=== PATIENT | male | born 1955 | race Caucasian/White ===

== ENCOUNTER 2019-04-16 15:44 | Emergency (ER) | payer BC ==
[~2019-04-16] VITALS: Ht 175.3 cm; Wt 99.8 kg
--- OUTSIDE RECORDS SUMMARY | ~2019-04-16 | XMS | Encounter Summary ---
Demographics + + + | Address | [address] | | | [address] | | | [place] [address] | + + + | Home Phone | | + + + | Preferred Language | Unknown | + + + | Marital Status | | + + + | Hindu Affiliation | 1013 | + + + | Race | Unknown | + + + | Ethnic Group | Unknown | + + + Author + + + | Author | [facility] | | | and [place] | + + + | Organization | [facility] | | | and [place] | + + + | Address | Unknown | + + + | Phone | Unavailable | + + + Support + + +---------+ + | Name | Relationship | Address | Phone | + + +---------+ + | Trena Robertson | ECON | Unknown | | + + +---------+ + Care Team Providers + +------+ + | Care Electric Wirer Name | Role | Phone | + +------+ + PCP | Unavailable | + +------+ + Encounter Details +--------+ + + + + | Date | Type | Department | Care Team | Description | +--------+ + + + + | 12/25/ | Hospital | [facility] | Judah Galeano | Cough | | 2006 | Encounter | [facility] [address] | MD [address] | | | | | [address] | [address] | | | | | [place] | [place] | | | | | [address] | [address] | | | | | [phone] | [phone] | | | | | | | | +--------+ + + + + Social History + +-------+ +--------+------+ | Tobacco Use | Types | Packs/Day | Years | Date | | | | | Used | | + +-------+ +--------+------+ | Never Assessed | | | | | + +-------+ +--------+------+ + + + | Sex Assigned at | Date Recorded | | | | + + + | Not on file | | + + + + + + + | Job Start Date | Occupation | Industry | + + + + | Not on file | Not on file | Not on file | + + + + + + + + | Travel History | Travel Start | Travel End | + + + + + + | No recent travel history available. | + + documented as of this encounter Plan of Treatment Not on filedocumented as of this encounter Visit Diagnoses + + | Diagnosis | + + | Cough | + + documented in this encounter"
--- OUTSIDE RECORDS SUMMARY | ~2019-04-16 | XMS | Encounter Summary ---
Demographics + + + | Address | [address] | | | [address] | | | [place] [address] | + + + | Home Phone | | + + + | Preferred Language | Unknown | + + + | Marital Status | | + + + | Denominational Affiliation | 1013 | + + + | Race | Unknown | + + + | Ethnic Group | Unknown | + + + Author + + + | Author | [facility] | | | and [place] | + + + | Organization | [facility] | | | [...] Team Providers + +------+ + | Care Cut Out Worker Name | Role | Phone | + +------+ + | Bennie Lewis MD | PCP | | + +------+ + Reason for Visit + + + | Reason | Comments | + + + | New Patient | | + + + | Colon Cancer | | | Screening | | + + + Evaluate & Treat (Routine) +--------+--------+ + + + + | Status | Reason | Specialty | Diagnoses / | Referred By | Referred To | | | | | Procedures | Contact | Contact | +--------+--------+ + + + + | Closed | | Gastroenterol | Diagnoses | Debbie, | [facility] | | | | ogy | Encounter | Bennie | Gastroenterol | | | | | for | MD Ihsan | ogy [address] | | | | | screening | [address] | | | | | for | [place] | [address] [place] | | | | | malignant | [address] [place] | [place] | | | | | neoplasm of | [place] | [address] | | | | | colon | [address] | Phone: | | | | | Procedures | Phone: | [phone] | | | | | COMMUNITY DEVELOPMENT DIRECTOR | [phone] | Fax: | | | | | COLONOSCOPY | Fax: | [phone] | | | | | | [phone] | | +--------+--------+ + + + + Encounter Details +--------+---------+ + + + | Date | Type | Department | Care Team | Description | +--------+---------+ + + + | 01/29/ | Office | [facility] | Matias Croft MD | Hx of colonic polyp | | 2019 | Visit | GASTROENTEROLOGY | [address], [place] | (Primary Dx); Long | | | | [address] | [address] [place] | term (current) use | | | | [address] [place], [place] | [address] | of anticoagulants; | | | | [address] | | Coronary artery | | | | [phone] | | disease, angina | | | | | | presence | | | | | | unspecified, | | | | | | unspecified vessel | | | | | | or lesion type, | | | | | | unspecified whether | | | | | | creek or | | | | | | transplanted heart | +--------+---------+ + + + Social History + +-------+ +--------+------+ | Tobacco Use | Types | Packs/Day | Years | Date | | | | | Used | | + +-------+ +--------+------+ | Never Smoker | | | | | + +-------+ +--------+------+ + +---+---+---+ | Smokeless Tobacco: | | | | | Never Used | | | | + +---+---+---+ + + +---------+ + | Alcohol Use | Drinks/Week | oz/Week | Comments | + + +---------+ + | Yes | | | Very rarely | + + +---------+ + + + + | Sex Assigned at [...] + + documented as of this encounter Last Filed Vital Signs + + + + + | Vital Sign | Reading | Time Taken | Comments | + + + + + | Blood Pressure | 160/60 | 01/29/2019 3:17 PM | | | | | PDT | | + + + + + | Pulse | 67 | 01/29/2019 3:17 PM | | | | | PDT | | + + + + + | Temperature | - | - | | + + + + + | Respiratory Rate | 16 | 01/29/2019 3:17 PM | | | | | PDT | | + + + + + | Oxygen Saturation | - | - | | + + + + + | Inhaled Oxygen | - | - | | | Concentration | | | | + + + + + | Weight | 98.9 kg (218 lb 0.6 | 01/29/2019 3:17 PM | | | | oz) | PDT | | + + + + + | Height | 175.3 cm (5' 9") | 01/29/2019 3:17 PM | | | | | PDT | | + + + + + | Body Mass Index | 32.2 | 01/29/2019 3:17 PM | | | | | PDT | | + + + + + documented in this encounter Plan of Treatment Not on filedocumented as of this encounter Visit Diagnoses + + | Diagnosis | + + | Hx of colonic polyp - Primary Personal history of colonic polyps | + + | 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
--- OUTSIDE RECORDS SUMMARY | ~2019-04-16 | XMS | Encounter Summary ---
Demographics + + + | Address | [address] | | | [address] | | | [place] [address] | + + + | Home Phone | | + + + | Preferred Language | Unknown | + + + | Marital Status | | + + + | Orthodoxy Affiliation | 1013 | + + + | Race | Unknown | + + + | Ethnic Group | Unknown | + + + Author + + + | Author | [facility] | | | and [place] | + + + | Organization | [facility] | | | and [...] Team Providers + +------+ + | Care Multi Operation Machine Operator Name | Role | Phone | + +------+ + PCP | Unavailable | + +------+ + Encounter Details +--------+ + + + + | Date | Type | Department | Care Team | Description | +--------+ + + + + | 04/24/ | Hospital | [facility] | Ayo Navas E, | | | 2006 | Encounter | MED CTR MP INTRA OP | [address] [facility] | | | | | [address] | [place] | | | | | [place] | [address] | | | | | [address] | | | | | | [phone] | | | +--------+ + + + [...] filedocumented as of this encounter Visit Diagnoses Not on filedocumented in this encounter"
--- OUTSIDE RECORDS SUMMARY | ~2019-04-16 | XMS | Encounter Summary ---
Demographics + + + | Address | [address] | | | [address] | | | [place] [address] | + + + | Home Phone | | + + + | Preferred Language | Unknown | + + + | Marital Status | | + + + | Quaker Affiliation | 1013 | + + + | Race | Unknown | + + + | Ethnic Group | Unknown | + + + Author + + + | Author | [facility] | | | and [place] | + + + | Organization | [facility] | | | and [...] Team Providers + +------+ + | Care Administrative Analyst Name | Role | Phone | + +------+ + PCP | Unavailable | + +------+ + Encounter Details +--------+ + + + + | Date | Type | Department | Care Team | Description | +--------+ + + + + | 08/11/ | Hospital | [facility] | Price Gallagher, | | | 2008 - | Encounter | MED CTR [address] | [address] | | | | | [place], | [place], | | | 08/12/ | | [place] [address] | [place] [address] | | | 2008 | | [phone] | [phone] | | | | | | | [...]
--- OUTSIDE RECORDS SUMMARY | ~2019-04-16 | XMS | Encounter Summary ---
Demographics + + + | Address | [address] | | | [address] | | | [place] [address] | + + + | Home Phone | | + + + | Preferred Language | Unknown | + + + | Marital Status | | + + + | Catholic Affiliation | 1013 | + + + | Race | Unknown | + + + | Ethnic Group | Unknown | + + + Author + + + | Author | [facility] | | | and [place] | + + + | Organization | [facility] | | | [...] Team Providers + +------+ + | Care Roofer Assistant Name | Role | Phone | + +------+ + PCP | Unavailable | + +------+ + Encounter Details +--------+ + + + + | Date | Type | Department | Care Team | Description | +--------+ + + + + | 11/27/ | Hospital | [facility] | Chuy Mei | | | 2006 | Encounter | [facility] | [address] [facility] | | | | | CLINICAL DECISION | [address] | | | | | [address] [facility] | [id number] | | | | | [place], [place] | | | | | | [address] | | | | | | [phone] | | | +--------+ + + + [...]
--- OUTSIDE RECORDS SUMMARY | ~2019-04-16 | XMS | Encounter Summary ---
Demographics + + + | Address | [address] | | | [address] | | | [place] [address] | + + + | Home Phone | | + + + | Preferred Language | Unknown | + + + | Marital Status | | + + + | Muslim Affiliation | 1013 | + + + | Race | Unknown | + + + | Ethnic Group | Unknown | + + + Author + + + | Author | [facility] | | | and [place] | + + + | Organization | [facility] | | [...] Team Providers + +------+ + | Care Dry Starch Supervisor Name | Role | Phone | + +------+ + PCP | Unavailable | + +------+ + Encounter Details +--------+ + + + + | Date | Type | Department | Care Team | Description | +--------+ + + + + | 08/11/ | Hospital | [facility] | | | | 2008 | Encounter | MED CTR XRAY [address] | | | | | | [place] | | | | | | [place] [address] | | | | | | [phone] | | | +--------+ + + + [...]
--- OUTSIDE RECORDS SUMMARY | ~2019-04-16 | XMS | Encounter Summary ---
Demographics + + + | Address | [address] | | | [address] | | | [place] [address] | + + + | Home Phone | | + + + | Preferred Language | Unknown | + + + | Marital Status | | + + + | Bahai Affiliation | 1013 | + + + | Race | Unknown | + + + | Ethnic Group | Unknown | + + + Author + + + | Author | [facility] | | | and [place] | + + + | Organization | [facility] | | | [...] Team Providers + +------+ + | Care Computer Mechanic Name | Role | Phone | + +------+ + | Bennie Lewis MD | PCP | | + +------+ + Encounter Details +--------+ + + + + | Date | Type | Department | Care Team | Description | +--------+ + + + + | 01/07/ | Abstract | [facility] | Provider, | | | 2018 | | GASTROENTEROLOGY | MD [address] | | | | | [address] | [place] | | | | | [address] | [place] [address] | | | | | [address] | | | | | | [phone] | | | +--------+ + + + [...] Not on filedocumented as of this encounter Procedures + +--------+ + + + | Procedure Name | Priori | Date/Time | Associated Diagnosis | Comments | | | ty | | | | + +--------+ + + + | CBC WITH | Routin | 01/07/2019 | | Results for this | | DIFFERENTIAL | e | | | procedure are in the | | | | | | results section. | + +--------+ + + + | EXTERNAL LAB: [facility] | Routin | 12/11/2018 | | Results for this | | | e | | | procedure are in the | | | | | | results section. | + +--------+ + + + | EXTERNAL LAB: | Routin | 12/11/2018 | | Results for this | | GLUCOSE | e | | | procedure are in the | | | | | | results section. | + +--------+ + + + | EXTERNAL LAB: | Routin | 12/11/2018 | | Results for this | | PHOSPHORUS | e | | | procedure are in the | | | | | | results section. | + +--------+ + + + | EXTERNAL LAB: | Routin | 12/11/2018 | | Results for this | | MAGNESIUM | e | | | procedure are in the | | | | | | results section. | + +--------+ + + + | EXTERNAL LAB: | Routin | 12/11/2018 | | Results for this | | CALCIUM | e | | | procedure are in the | | | | | | results section. | + +--------+ + + + | EXTERNAL LAB: [facility] | Routin | 12/11/2018 | | Results for this | | DIOXIDE | e | | | procedure are in the | | | | | | results section. | + +--------+ + + + | EXTERNAL LAB: | Routin | 12/11/2018 | | Results for this | | CHLORIDE | e | | | procedure are in the | | | | | | results section. | + +--------+ + + + | EXTERNAL LAB: | Routin | 12/11/2018 | | Results for this | | POTASSIUM | e | | | procedure are in the | | | | | | results section. | + +--------+ + + + | EXTERNAL LAB: SODIUM | Routin | 12/11/2018 | | Results for this | | | e | | | procedure are in the | | | | | | results section. | + +--------+ + + + | EXTERNAL LAB: CBC | Routin | 12/11/2018 | | Results for this | | | e | | | procedure are in the | | | | | | results section. | + +--------+ + + + | EXTERNAL LAB: | Routin | 12/11/2018 | | Results for this | | TRIGLYCERIDES | e | | | procedure are in the | | | | | | results section. | + +--------+ + + + | EXTERNAL LAB: | Routin | 12/11/2018 | | Results for this | | CHOLESTEROL, HDL | e | | | procedure are in the | | | | | | results section. | + +--------+ + + + | EXTERNAL LAB: | Routin | 12/11/2018 | | Results for this | | CHOLESTEROL, TOTAL | e | | | procedure are in the | | | | | | results section. | + +--------+ + + + | EXTERNAL LAB: | Routin | 12/11/2018 | | Results for this | | CHOLESTEROL, LDL | e | | | procedure are in the | | | | | | results section. | + +--------+ + + + | EXTERNAL LAB: EGFR | Routin | 12/11/2018 | | Results for this | | | e | | | procedure are in the | | | | | | results section. | + +--------+ + + + | EXTERNAL LAB: | Routin | 12/11/2018 | | Results for this | | CREATININE | e | | | procedure are in the | | | | | | results section. | + +--------+ + + + | LIPID PANEL | Routin | 12/11/2018 | | Results for this | | | e | | | procedure are in the | | | | | | results section. | + +--------+ + + + | CBC WITH | Routin | 12/11/2018 | | Results for this | | DIFFERENTIAL | e | | | procedure are in the | | | | | | results section. | + +--------+ + + + | HEMOGLOBIN A1C | Routin | 12/11/2018 | | Results for this | | | e | | | procedure are in the | | | | | | results section. | + +--------+ + + + documented in this encounter Results CBC with Differential (01/07/2019) + + | Specimen | + + | Blood | + + + + + | Narrative | Performed At | + + + | Opened in error | | + + + Lipid Panel (12/11/2018) + +---------+ + + + | Component | Value | Ref Range | Performed | Pathologist | | | | | At | Signature | + +---------+ + + + | Chol/HDL | 2.5 (A) | 3.7 - 6.7 Ratio | | | | Ratio | | | | | + +---------+ + + + | Non HDL | 103 | 0 - 130 mg/dl | | | | Chol. | | | | | | (LDL+VLDL) | | | | | + +---------+ + + + + + | Specimen | + + | Blood | + + External Lab: BUN (12/11/2018) + +-------+ + + + | Component | Value | Ref Range | Performed | Pathologist | | | | | At | Signature | + +-------+ + + + | BUN, | 14 | 7 - 23 | EXTERNAL | | | External | | | LAB | | + +-------+ + + + + +---------+ + + | Performing | Address | City/State/Zipcode | Phone Number | | Organization | | | | + +---------+ + + | EXTERNAL LAB | | | | + +---------+ + + External Lab: Glucose (12/11/2018) + +-------+ + + + | Component | Value | Ref Range | Performed | Pathologist | | | | | At | Signature | + +-------+ + + + | Glucose, | 89 | 71 - 109 | EXTERNAL | | | External | | | LAB | | + +-------+ + + + + +---------+ + + | Performing | Address | City/State/Zipcode | Phone Number | | Organization | | | | + +---------+ + + | EXTERNAL LAB | | | | + +---------+ + + External Lab: Phosphorus (12/11/2018) + +-------+ + + + | Component | Value | Ref Range | Performed | Pathologist | | | | | At | Signature | + +-------+ + + + | Phosphorus, | 3.9 | 2.5 - 4.7 | EXTERNAL | | | External | | | LAB | | + +-------+ + + + + +---------+ + + | Performing | Address | City/State/Zipcode | Phone Number | | Organization | | | | + +---------+ + + | EXTERNAL LAB | | | | + +---------+ + + External Lab: Magnesium (12/11/2018) + +-------+ + + + | Component | Value | Ref Range | Performed | Pathologist | | | | | At | Signature | + +-------+ + + + | Magnesium, | 2.3 | 2 - 2.6 | EXTERNAL | | | External | | | LAB | | + +-------+ + + + + +---------+ + + | Performing | Address | City/State/Zipcode | Phone Number | | Organization | | | | + +---------+ + + | EXTERNAL LAB | | | | + +---------+ + + External Lab: Calcium (12/11/2018) + +-------+ + + + | Component | Value | Ref Range | Performed | Pathologist | | | | | At | Signature | + +-------+ + + + | Calcium, | 9.7 | 8.4 - 10.5 | EXTERNAL | | | External | | | LAB | | + +-------+ + + + + +---------+ + + | Performing | Address | City/State/Zipcode | Phone Number | | Organization | | | | + +---------+ + + | EXTERNAL LAB | | | | + +---------+ + + External Lab: Carbon Dioxide (12/11/2018) + +-------+ + + + | Component | Value | Ref Range | Performed | Pathologist | | | | | At | Signature | + +-------+ + + + | Carbon | 26 | 21 - 32 | EXTERNAL | | | Dioxide, | | | LAB | | | External | | | | | + +-------+ + + + + +---------+ + + | Performing | Address | City/State/Zipcode | Phone Number | | Organization | | | | + +---------+ + + | EXTERNAL LAB | | | | + +---------+ + + External Lab: Chloride (12/11/2018) + +-------+ + + + | Component | Value | Ref Range | Performed | Pathologist | | | | | At | Signature | + +-------+ + + + | Chloride, | 100 | 98 - 107 | EXTERNAL | | | External | | | LAB | | + +-------+ + + + + +---------+ + + | Performing | Address | City/State/Zipcode | Phone Number | | Organization | | | | + +---------+ + + | EXTERNAL LAB | | | | + +---------+ + + External Lab: Potassium (12/11/2018) + +-------+ + + + | Component | Value | Ref Range | Performed | Pathologist | | | | | At | Signature | + +-------+ + + + | Potassium, | 4.9 | 3.5 - 5.1 | EXTERNAL | | | External | | | LAB | | + +-------+ + + + + +---------+ + + | Performing | Address | City/State/Zipcode | Phone Number | | Organization | | | | + +---------+ + + | EXTERNAL LAB | | | | + +---------+ + + External Lab: Sodium (12/11/2018) + +-------+ + + + | Component | Value | Ref Range | Performed | Pathologist | | | | | At | Signature | + +-------+ + + + | Sodium, | 137 | 133 - 145 | EXTERNAL | | | External | | | LAB | | + +-------+ + + + + +---------+ + + | Performing | Address | City/State/Zipcode | Phone Number | | Organization | | | | + +---------+ + + | EXTERNAL LAB | | | | + +---------+ + + External Lab: Triglycerides (12/11/2018) + +-------+ + + + | Component | Value | Ref Range | Performed | Pathologist | | | | | At | Signature | + +-------+ + + + | Triglycerid | 111 | 51 - 152 | EXTERNAL | | | es, | | | LAB | | | External | | | | | + +-------+ + + + + + | Specimen | + + | Blood | + + + +---------+ + + | Performing | Address | City/State/Zipcode | Phone Number | | Organization | | | | + +---------+ + + | EXTERNAL LAB | | | | + +---------+ + + External Lab: Cholesterol, HDL (12/11/2018) + +-------+ + + + | Component | Value | Ref Range | Performed | Pathologist | | | | | At | Signature | + +-------+ + + + | HDL | 67 | 35 - 80 mg/dl | EXTERNAL | | | Cholesterol | | | LAB | | | , External | | | | | + +-------+ + + + + + | Specimen | + + | Blood | + + + +---------+ + + | Performing | Address | City/State/Zipcode | Phone Number | | Organization | | | | + +---------+ + + | EXTERNAL LAB | | | | + +---------+ + + External Lab: Cholesterol, Total (12/11/2018) + +-------+ + + + | Component | Value | Ref Range | Performed | Pathologist | | | | | At | Signature | + +-------+ + + + | Cholesterol | 170 | 50 - 200 mg/dl | EXTERNAL | | | , Total, | | | LAB | | | External | | | | | + +-------+ + + + + + | Specimen | + + | Blood | + + + +---------+ + + | Performing | Address | City/State/Zipcode | Phone Number | | Organization | | | | + +---------+ + + | EXTERNAL LAB | | | | + +---------+ + + External Lab: Cholesterol, LDL (12/11/2018) + +-------+ + + + | Component | Value | Ref Range | Performed | Pathologist | | | | | At | Signature | + +-------+ + + + | LDL | 81 | 0 - 130 | EXTERNAL | | | Cholesterol | | | LAB | | | , Direct, | | | | | | External | | | | | + +-------+ + + + + + | Specimen | + + | Blood | + + + +---------+ + + | Performing | Address | City/State/Zipcode | Phone Number | | Organization | | | | + +---------+ + + | EXTERNAL LAB | | | | + +---------+ + + External Lab: eGFR (12/11/2018) + +-------+ + + + | Component | Value | Ref Range | Performed | Pathologist | | | | | At | Signature | + +-------+ + + + | eGFR, | >60 | 60 - 99,999 | EXTERNAL | | | External | | | LAB | | + +-------+ + + + + + | Specimen | + + | Blood | + + + +---------+ + + | Performing | Address | City/State/Zipcode | Phone Number | | Organization | | | | + +---------+ + + | EXTERNAL LAB | | | | + +---------+ + + External Lab: Creatinine (12/11/2018) + +-------+ + + + | Component | Value | Ref Range | Performed | Pathologist | | | | | At | Signature | + +-------+ + + + | Creatinine, | 1.1 | 0.8 - 1.5 | EXTERNAL | | | External | | | LAB | | + +-------+ + + + + + | Specimen | + + | Blood | + + + +---------+ + + | Performing | Address | City/State/Zipcode | Phone Number | | Organization | | | | + +---------+ + + | EXTERNAL LAB | | | | + +---------+ + + CBC with Differential (12/11/2018) + + + + + + | Component | Value | Ref Range | Performed | Pathologist | | | | | At | Signature | + + + + + + | MCH | 29.6 | 27.0 - 31.0 pg | | | + + + + + + | MCHC | 31.6 (A) | 32.0 - 36.0 | | | | | | g/dL | | | + + + + + + | % Basophils | 0.5 | 0.0 - 2.0 % | | | + + + + + + | % Immature | 0.2 | 0.0 - 0.9 % | | | | Granulocyte | | | | | | s | | | | | + + + + + + | Absolute | 0.01 | 0.00 - 0.07 | | | | Immature | | K/uL | | | | Granulocyte | | | | | | s | | | | | + + + + + + + + | Specimen | + + | Blood | + + Hemoglobin A1C (12/11/2018) + +---------+ + + + | Component | Value | Ref Range | Performed | Pathologist | | | | | At | Signature | + +---------+ + + + | Hemoglobin | 6.1 (A) | 0.0 - 5.6 % | EXTERNAL | | | A1c | | | LAB | | + +---------+ + + + + + | Specimen | + + | Blood | + + + +---------+ + + | Performing | Address | City/State/Zipcode | Phone Number | | Organization | | | | + +---------+ + + | EXTERNAL LAB | | | | + +---------+ + + External Lab: CBC (12/11/2018) + +-------+ + + + | Component | Value | Ref Range | Performed | Pathologist | | | | | At | Signature | + +-------+ + + + | WBC, | 5.9 | 3 - 10.6 | EXTERNAL | | | External | | | LAB | | + +-------+ + + + | HGB, | 13.3 | 11.8 - 17.1 | EXTERNAL | | | External | | | LAB | | + +-------+ + + + | HCT, | 42.1 | 36 - 51 | EXTERNAL | | | External | | | LAB | | + +-------+ + + + | PLT, | 277 | 150 - 400 | EXTERNAL | | | External | | | LAB | | + +-------+ + + + | Neutrophils | 52.5 | 44 - 74 | EXTERNAL | | | %, | | | LAB | | | External | | | | | + +-------+ + + + | Lymphocytes | 35.0 | 15 - 42 | EXTERNAL | | | %, | | | LAB | | | External | | | | | + +-------+ + + + | Monocytes | 9.1 | 4 - 13 | EXTERNAL | | | %, External | | | LAB | | + +-------+ + + + | Eosinophils | 2.7 | 0 - 7 | EXTERNAL | | | %, | | | LAB | | | External | | | | | + +-------+ + + + | Neutrophils | 3.1 | 1.2 - 7 | EXTERNAL | | | , Absolute, | | | LAB | | | External | | | | | + +-------+ + + + | Lymphocytes | 2.1 | 0.6 - 3.4 | EXTERNAL | | | , Absolute, | | | LAB | | | External | | | | | + +-------+ + + + | Monocytes, | 0.5 | 0.2 - 1 | EXTERNAL | | | Absolute, | | | LAB | | | External | | | | | + +-------+ + + + | Eosinophils | 0.2 | 0 - 0.5 | EXTERNAL | | | , Absolute | | | LAB | | + +-------+ + + + | Basophils, | 0.0 | 0 - 0.2 | EXTERNAL | | | Absolute | | | LAB | | + +-------+ + + + | RBC, | 4.49 | 3.86 - 5.7 | EXTERNAL | | | External | | | LAB | | + +-------+ + + + | MCV, | 94 | 81 - 102 | EXTERNAL | | | External | | | LAB | | + +-------+ + + + | RDW, | 12.6 | 11.2 - 16.2 | EXTERNAL | | | External | | | LAB | | + +-------+ + + + + +---------+ + + | Performing | Address | City/State/Zipcode | Phone Number | | Organization | | | | + +---------+ + + | EXTERNAL LAB | | | | + +---------+ + + documented in this encounter Visit Diagnoses Not on filedocumented in this encounter"
--- OUTSIDE RECORDS SUMMARY | ~2019-04-16 | XMS | Encounter Summary ---
Demographics + + + | Address | [address] | | | [address] | | | [place] [address] | + + + | Home Phone | | + + + | Preferred Language | Unknown | + + + | Marital Status | | + + + | Worship Affiliation | 1013 | + + + | Race | Unknown | + + + | Ethnic Group | Unknown | + + + Author + + + | Author | [facility] | | | and [place] | + + + | Organization | [facility] | | [...] Team Providers + +------+ + | Care Nursing Techn Name | Role | Phone | + +------+ + PCP | Unavailable | + +------+ + Encounter Details +--------+ + + + + | Date | Type | Department | Care Team | Description | +--------+ + + + + | 01/02/ | Abstract | [facility] | DATA MIGRATION [facility]IM[facility] | | | 2011 | | Conversion Location | [facility] | | | | | [phone] | | | +--------+ + + + [...] + + + | Blood Pressure | 126/82 | 10/11/2009 12:00 AM | | | | | PDT | | + + + + + | Pulse | - | - | | + + + + + | Temperature | - | - | | + + + + + | Respiratory Rate | - | - | | + + + + + | Oxygen Saturation | - | - | | + + + + + | Inhaled Oxygen | - | - | | | Concentration | | | | + + + + + | Weight | 90.7 kg (200 lb) | 01/12/2010 12:00 AM | | | | | PDT | | + + + + + | Height | 175.3 cm (5' 9") | 08/30/2009 12:00 AM | | | | | PDT | | + + + + + | Body Mass Index | 29.53 | 08/30/2009 12:00 AM | | | | | PDT | | + + + + + documented in this encounter Plan of Treatment Not on filedocumented as of this encounter Visit Diagnoses Not on filedocumented in this encounter
--- OUTSIDE RECORDS SUMMARY | ~2019-04-16 | XMS | Clinical Summary ---
Demographics + + + | Address | [address] | | | [place] [address] | + + + | Home Phone | | + + + | Preferred Language | Unknown | + + + | Marital Status | | + + + | Spiritism Affiliation | 1013 | + + + | Race | Unknown | + + + | Ethnic Group | Unknown | + + + Author + + + | Author | [facility] (Historical as of | | | 12-07-18) | + + + | Organization | [facility] (Historical as of | | | 12-07-18) | + + + | Address | Unknown | + + + | Phone | Unavailable | + + + Support + + + + + | Name | Relationship | Address | Phone | + + + + + | Isael Robertson | ECON | [address] | | | | | [place], [place] | | | | | [address] | | + + + + + Care Team Providers + +------+ + | Care Reel Stripper Name | Role | Phone | + +------+ + | Kian Murillo MD | PP | | + +------+ + Allergies Not on File Current Medications Not on file Active Problems Not on file Social History + +-------+ +--------+------+ | Tobacco [...] on file | | + + + Plan of Treatment Not on file Results Not on filefrom Last 3 Months"
--- OUTSIDE RECORDS SUMMARY | ~2019-04-16 | XMS | Encounter Summary ---
Demographics + + + | Address | [address] | | | [address] | | | [place] [address] | + + + | Home Phone | | + + + | Preferred Language | Unknown | + + + | Marital Status | | + + + | Congregation Affiliation | 1013 | + + + | Race | Unknown | + + + | Ethnic Group | Unknown | + + + Author + + + | Author | [facility] | | | and [place] | + + + | Organization | [facility] | | | and [...] Team Providers + +------+ + | Care Knockup Worker Name | Role | Phone | + +------+ + PCP | Unavailable | + +------+ + Encounter Details +--------+ + + + + | Date | Type | Department | Care Team | Description | +--------+ + + + + | 10/21/ | Hospital | [facility] | Merline Soto | OTHER PULMONARY | | 2009 - | Encounter | [facility] | MD Hodan [address] | EMBOLISM AND | | | | CARE FLOOR [phone] [place], [place] | INFARCTION (HCC) | | 10/30/ | | [address] | [address] | | | 2009 | | [place], [place] | | | | | | [address] | Ninfa Garcia MD | | | | | [phone] | [address] | | | | | | [place] [address] | | +--------+ + + + + [...] + + documented as of this encounter Medications at Time of Discharge + + + +---------+ + + | Medication | Sig | Dispensed | Refills | Start | End Date | | | | | | Date | | + + + +---------+ + + | aspirin (ADULT | Take 81 mg by mouth | | 0 | 08/31/19 | | | ASPIRIN EC LOW | Daily. | | | 10 | | | STRENGTH) 81 MG EC | | | | | | | tablet | | | | | | + + + +---------+ + + | lisinopril | Take 20 mg by mouth | | 0 | 08/31/19 | | | (PRINIVIL, ZESTRIL) | 2 times daily. | | | 10 | | | 20 mg tablet | | | | | | + + + +---------+ + + | metoprolol | 0.5 tablet twice | | 0 | 08/31/19 | | | (LOPRESSOR) 100 MG | daily | | | 10 | | | tablet | | | | | | + + + +---------+ + + | sertraline | Take 50 mg by mouth | | 0 | 08/31/19 | | | (ZOLOFT) 50 mg | 2 times daily. | | | 10 | | | tablet | | | | | | + + + +---------+ + + | simvastatin | Take 80 mg by mouth | | 0 | 08/31/19 | | | (ZOCOR) 80 mg tablet | 2 times daily. | | | 10 | | + + + +---------+ + + documented as of this encounter Plan of Treatment Not on filedocumented as of this encounter Procedures + +--------+ + + + | Procedure Name | Priori | Date/Time | Associated Diagnosis | Comments | | | ty | | | | + +--------+ + + + | XR KNEE LEFT 1 - 2 | Routin | 10/24/2009 | | Results for this | | VW | e | 2:01 PM | | procedure are in the | | | | PDT | | results section. | + +--------+ + + + | ECHO COMPLETE | Routin | 10/22/2009 | | Results for this | | | e | 7:59 AM | | procedure are in the | | | | PDT | | results section. | + +--------+ + + + | VAS LOWER EXTREMITY | Routin | 10/21/2009 | | Results for this | | VENOUS BILATERAL | e | 9:44 PM | | procedure are in the | | | | PDT | | results section. | + +--------+ + + + documented in this encounter Results XR Knee Left 1 - 2 Vw (10/24/2009 2:01 PM PDT) + + | Specimen | + + | | + + + + + | Narrative | Performed At | + + + | [facility] [id number] Ph: | | | Patient Name: LISA ROBERTSON Date of : | | | 1955 Medical Record: [id number] Account: [id number] | | | Exam Date/Time: 10/24/2009 13:06 Ordering | | | Physician: MARCOS MARTINO Order Detail: [id number] Exam Description: | | | XR KNEE LIMITED LEFT | | | | | | INDICATIONS: Left knee swelling and pain. COMPARISON: None. | | | TECHNIQUE: Two views of the left knee (AP and crosstable lateral). | | | FINDINGS: The bones of the knee appear intact, without acute | | | fracture. There is a large right and dense joint effusion | | | consistent with hemarthrosis. This raises the level of suspicion | | | for an occult fracture, and although no fluid/fat level is seen to | | | indicate bone marrow fat in the joint space. The hemarthrosis | | | somewhat elevates the patella from the patellofemoral groove. No | | | chondrocalcinosis. No intra-articular loose body. IMPRESSION: | | | 1. Large radiodense left knee joint effusion, likely | | | hemarthrosis. 2. No fracture is apparent. | | + + + + + | Procedure Note | + + | Jose Shen - 12/15/2018 6:43 PM PDT | | [facility] | | [facility] [address] | | | | | | Patient Name: LISA ROBERTSON | | Date of : 1955 | | Medical Record: [id number] | | Account: [id number] | | | | | | Exam Date/Time: 10/24/2009 13:06 | | Ordering Physician: MARCOS MARTINO | | Order Detail: [id number] | | Exam Description: XR KNEE LIMITED LEFT | | | | INDICATIONS: | | Left knee swelling and pain. | | | | COMPARISON: | | None. | | | | TECHNIQUE: | | Two views of the left knee (AP and crosstable lateral). | | | | FINDINGS: | | The bones of the knee appear intact, without acute fracture. There is a | | large right and dense joint effusion consistent with hemarthrosis. This | | raises the level of suspicion for an occult fracture, and although no | | fluid/fat level is seen to indicate bone marrow fat in the joint space. | | The hemarthrosis somewhat elevates the patella from the patellofemoral | | groove. No chondrocalcinosis. No intra-articular loose body. | | | | IMPRESSION: | | 1. Large radiodense left knee joint effusion, likely hemarthrosis. | | 2. No fracture is apparent. | | | | | + + ECHO Complete (10/22/2009 7:59 AM PDT) + + | Specimen | + + | | + + + + + | Narrative | Performed At | + + + | [place] [address] | | | Patient Name: LISA ROBERTSON Date of : | | | 1955 Medical Record: [id number] Account: [id number] | | | Exam Date/Time: 10/22/2009 07:28 Performing | | | Physician: Becky Van MD Order Detail: [id number] Exam | | | Description: ECHO CARDIAC ADULT WITH DOPPLER COLOR FLOW | | | | | | INDICATIONS none given CONCLUSIONS 1. | | | Sinus rhythm. 2. A 2-dimensional transthoracic echocardiogram with | | | m-mode, spectral and color flow Doppler was perfomed. 3. This was a | | | technically adequate study. 4. Overall left ventricular systolic | | | function is normal with, an EF between 55 - 60 %. 5. The right | | | ventricle is severely enlarged measuring >4.1 cm. 6. The right | | | ventricular systolic function is severely impaired. 7. The left | | | atrium is mildly dilated. 8. Aortic valve is trileaflet and is mildly | | | thickened. 9. Mild thickening of the anterior mitral valve leaflet. | | | 10. There is mild thickening of the posterior mitral valve leaflet. | | | 11. Moderate to severe tricuspid regurgitation present. 12. There is | | | moderate pulmonary hypertension. 13. The aortic root is dilated | | | measuring 3.7cm. FINDINGS -------- ECG rhythm: Sinus rhythm. | | | Study: A 2-dimensional transthoracic echocardiogram with m-mode, | | | spectral and color flow Doppler was perfomed. Study: This was a | | | technically adequate study. Left Ventricle: Overall left ventricular | | | systolic function is normal with, an EF between 55 - 60 %. Left | | | Ventricle: The left ventricle cavity size is normal. Left Ventricle: | | | Left ventricular wall thickness is normal. Left Ventricle: There is | | | paradoxical/dysynergic septal motion consistent with right ventricular | | | volume overload and/or elevated right ventricular end-diastolic | | | pressure. Right Ventricle: The right ventricle is severely enlarged | | | measuring >4.1 cm. Right Ventricle: The right ventricular systolic | | | function is severely impaired. Left Atrium: The left atrium is mildly | | | dilated Left Atrium: , and the LA measures 4.4cm. Right Atrium: The | | | right atrium is mildly enlarged Right Atrium: , and the RA measures | | | 5.9cm. Aortic Valve: Aortic valve is trileaflet and is mildly | | | thickened. Mitral Valve: Mild thickening of the anterior mitral valve | | | leaflet. Mitral Valve: There is mild thickening of the posterior | | | mitral valve leaflet. Tricuspid Valve: The tricuspid valve appears | | | structurally normal. Tricuspid Valve: Moderate to severe tricuspid | | | regurgitation present. Tricuspid Valve: There is moderate pulmonary | | | hypertension. Tricuspid Valve: The right ventricular systolic | | | pressure (pulmonary artery systolic pressure), as measured by Doppler, | | | is 55.17mmHg. Pulmonic Valve: The pulmonic valve is normal. | | | Pericardium: The pericardium appears to be thickened. IVC/Hepatic | | | Veins: The IVC is normal size (1.5-2.5cm) and collapses <50% with | | | sniff, consistent with central venous pressures of 10-15mmHg. Aorta: | | | The aortic root is dilated measuring 3.7cm. Mass: No mass visualized | | | Thrombus: No clot visualized Septum: No ASD observed. Septum: No | | | VSD observed. MEASUREMENTS Ao Diam: 3.73 cm | | | IVC: 2.34 cm LA Diam: 4.37 cm LA Major: 5.60 cm | | | EDV(Teich): 49.77 ml IVSd: 1.10 cm LVIDd: 3.46 cm LVPWd: | | | 1.36 cm LVOT Diam: 2.32 cm %FS: 25.86 % EF(Teich): | | | 51.89 % ESV(Teich): 23.94 ml IVSs: 1.37 cm LVIDs: 2.57 cm | | | LVPWs: 1.77 cm SV(Teich): 25.83 ml RA Major: 5.85 cm | | | RVIDd: 4.63 cm Ao Diam: 3.73 cm AV Cusp: 2.17 cm LA Diam: | | | 4.09 cm LA/Ao: 1.09 %FS: 34.21 % EDV(Teich): 96.42 ml | | | EF(Teich): 63.28 % ESV(Teich): 35.40 ml IVSd: 0.96 cm | | | IVSs: 1.32 cm LVIDd: 4.58 cm LVIDs: 3.01 cm LVPWd: 0.90 | | | cm LVPWs: 1.32 cm SV(Teich): 61.01 ml D-E Excursion: 2.10 | | | cm E-F Dent: 0.04 m/s HR: 89.66 BPM AV maxP.47 mmHg | | | AV meanP.92 mmHg AV Vmax: 0.93 m/s AV Vmean: 0.66 m/s | | | AV VTI: 15.75 cm BELINDA Vmax: 2.78 cm2 BELINDA (VTI): 2.50 cm2 | | | LVCI Dopp: 1.61 l/minm2 LVCO Dopp: 3.44 l/min HR: 87.25 BPM | | | LVOT maxP.48 mmHg LVOT meanP.71 mmHg LVSI Dopp: | | | 18.54 ml/m2 LVSV Dopp: 39.49 ml LVOT Vmax: 0.60 m/s LVOT | | | Vmean: 0.39 m/s LVOT VTI: 9.27 cm MV A Jose David: 0.33 m/s MV | | | DecT: 134.40 ms MV E Jose David: 0.50 m/s MV E/A Ratio: 1.47 MV | | | PHT: 39.36 ms MVA By PHT: 5.58 cm2 MV maxP.04 mmHg MV | | | meanP.45 mmHg MV Vmax: 0.51 m/s MV Vmean: 0.31 m/s MV | | | VTI: 10.17 cm MVA (VTI): 3.88 cm2 Septal e': 0.07 m/s | | | Septal E/e': 7.17 Lateral e': 0.11 m/s Lateral E/e': 4.51 | | | HR: 90.16 BPM PV maxP.78 mmHg PV meanP.34 mmHg PV | | | Vmax: 0.44 m/s PV Vmean: 0.26 m/s PV VTI: 4.44 cm RAP: | | | 15 mmHg RVSP: 55.16 mmHg TR maxP.16 mmHg TR Vmax: | | | 3.16 m/s TV A Jose David: 0.29 m/s TV Dec Dent: 1.93 m/s2 TV Dec | | | Time: 188.58 ms TV E Jose David: 0.36 m/s TV E/A Ratio: 1.22 | | | Certified Professional Controller: CM Authenticated by: Becky Van MD Report | | | Date/Time: 10-22-2009 12:06:32 | | + + + + + | Procedure Note | + + | Jose Shen Conversion - 12/15/2018 6:43 PM [facility] | | [place], [place] [address]Hm: Patient Name: Merlyn ROBERTSON of : | | 1955Medical Record: [id number]: [id number] | | Date/Time: 10/22/2009 07:28Performing Physician: Becky Giles | | Detail: Description: ECHO CARDIAC ADULT WITH DOPPLER COLOR | | FLOW INDICATIONS | | -none given CONCLUSIONS 1. Sinus rhythm.2. A 2-dimensional transthoracic | | echocardiogram with m-mode, spectral and color flow Doppler was perfomed.3. This was a | | technically adequate study.4. Overall left ventricular systolic function is normal with, | | an EF between 55 - 60 %.5. The right ventricle is severely enlarged measuring >4.1 | | cm.6. The right ventricular systolic function is severely impaired.7. The left atrium is | | mildly dilated.8. Aortic valve is trileaflet and is mildly thickened.9. Mild thickening | | of the anterior mitral valve leaflet.10. There is mild thickening of the posterior | | mitral valve leaflet.11. Moderate to severe tricuspid regurgitation present.12. There is | | moderate pulmonary hypertension.13. The aortic root is dilated measuring 3.7cm. | | FINDINGS--------ECG rhythm: Sinus rhythm.Study: A 2-dimensional transthoracic | | echocardiogram with m-mode, spectral and color flow Doppler was perfomed.Study: This was | | a technically adequate study.Left Ventricle: Overall left ventricular systolic function | | is normal with, an EF between 55 - 60 %.Left Ventricle: The left ventricle cavity size | | is normal.Left Ventricle: Left ventricular wall thickness is normal.Left Ventricle: | | There is paradoxical/dysynergic septal motion consistent with right ventricular volume | | overload and/or elevated right ventricular end-diastolic pressure.Right Ventricle: The | | right ventricle is severely enlarged measuring >4.1 cm.Right Ventricle: The right | | ventricular systolic function is severely impaired.Left Atrium: The left atrium is | | mildly dilatedLeft Atrium: , and the LA measures 4.4cm.Right Atrium: The right atrium is | | mildly enlargedRight Atrium: , and the RA measures 5.9cm.Aortic Valve: Aortic valve is | | trileaflet and is mildly thickened.Mitral Valve: Mild thickening of the anterior mitral | | valve leaflet.Mitral Valve: There is mild thickening of the posterior mitral valve | | leaflet.Tricuspid Valve: The tricuspid valve appears structurally normal.Tricuspid | | Valve: Moderate to severe tricuspid regurgitation present.Tricuspid Valve: There is | | moderate pulmonary hypertension.Tricuspid Valve: The right ventricular systolic pressure | | (pulmonary artery systolic pressure), as measured by Doppler, is 55.17mmHg.Pulmonic | | Valve: The pulmonic valve is normal.Pericardium: The pericardium appears to be | | thickened.IVC/Hepatic Veins: The IVC is normal size (1.5-2.5cm) and collapses <50% with | | sniff, consistent with central venous pressures of 10-15mmHg.Aorta: The aortic root is | | dilated measuring 3.7cm.Mass: No mass visualizedThrombus: No clot visualizedSeptum: No | | ASD observed.Septum: No VSD observed. MEASUREMENTS Ao Diam: 3.73 cmIVC: | | 2.34 cmLA Diam: 4.37 cmLA Major: 5.60 cmEDV(Teich): 49.77 mlIVSd: 1.10 cmLVIDd: | | 3.46 cmLVPWd: 1.36 cmLVOT Diam: 2.32 cm%FS: 25.86 %EF(Teich): 51.89 | | %ESV(Teich): 23.94 mlIVSs: 1.37 cmLVIDs: 2.57 cmLVPWs: 1.77 cmSV(Teich): 25.83 | | mlRA Major: 5.85 cmRVIDd: 4.63 cmAo Diam: 3.73 cmAV Cusp: 2.17 cmLA Diam: | | 4.09 cmLA/Ao: 1.09%FS: 34.21 %EDV(Teich): 96.42 mlEF(Teich): 63.28 %ESV(Teich): | | 35.40 mlIVSd: 0.96 cmIVSs: 1.32 cmLVIDd: 4.58 cmLVIDs: 3.01 cmLVPWd: 0.90 | | cmLVPWs: 1.32 cmSV(Teich): 61.01 mlD-E Excursion: 2.10 cmE-F Dent: 0.04 m/sHR: | | 89.66 BPMAV maxP.47 mmHgAV meanP.92 mmHgAV Vmax: 0.93 m/Jordyn Vmean: | | 0.66 m/Jordyn VTI: 15.75 cmAVA Vmax: 2.78 cm2AVA (VTI): 2.50 gv2EIIG Dopp: 1.61 | | l/[id number] Dopp: 3.44 l/minHR: 87.25 BPMLVOT maxP.48 mmHgLVOT meanP.71 | | mmHgLVSI Dopp: 18.54 ml/m2LVSV Dopp: 39.49 mlLVOT Vmax: 0.60 m/sLVOT Vmean: 0.39 | | m/sLVOT VTI: 9.27 cmMV A Jose David: 0.33 m/sMV DecT: 134.40 msMV E Jose David: 0.50 m/sMV | | E/A Ratio: 1.47MV PHT: 39.36 msMVA By PHT: 5.58 cm2MV maxP.04 mmHgMV meanPG: | | 0.45 mmHgMV Vmax: 0.51 m/sMV Vmean: 0.31 m/sMV VTI: 10.17 cmMVA (VTI): 3.88 | | nh5Jfsotj e': 0.07 m/sSeptal E/e': 7.17Lateral e': 0.11 m/sLateral E/e': 4.51HR: | | 90.16 BPMPV maxP.78 mmHgPV meanP.34 mmHgPV Vmax: 0.44 m/sPV Vmean: | | 0.26 m/sPV VTI: 4.44 cmRAP: 15 mmHgRVSP: 55.16 mmHgTR maxP.16 mmHgTR Vmax: | | 3.16 m/sTV A Jose David: 0.29 m/sTV Dec Dent: 1.93 m/s2TV Dec Time: 188.58 msTV E Jose David: | | 0.36 m/sTV E/A Ratio: 1.22 Certified Professional Controller: PRATIKuthenticated by: Becky Van | | MDReport Date/Time: 10-22-2009 12:06:32 | |Tricuspid Valve: The right ventricular systolic pressure (pulmonary artery systolic pressur e), as measured by Doppler, is 55.17mmHg. | |Pulmonic Valve: The pulmonic valve is normal. | |Pericardium: The pericardium appears to be thickened. | |IVC/Hepatic Veins: The IVC is normal size (1.5-2.5cm) and collapses <50% with sniff, consis tent with central venous pressures of 10-15mmHg. | |Aorta: The aortic root is dilated measuring 3.7cm. | |Mass: No mass visualized | |Thrombus: No clot visualized | |Septum: No ASD observed. | |Septum: No VSD observed. | | | |MEASUREMENTS | | | |Ao Diam: 3.73 cm | |IVC: 2.34 cm | |LA Diam: 4.37 cm | |LA Major: 5.60 cm | |EDV(Teich): 49.77 ml | |IVSd: 1.10 cm | |LVIDd: 3.46 cm | |LVPWd: 1.36 cm | |LVOT Diam: 2.32 cm | |%FS: 25.86 % | |EF(Teich): 51.89 % | |ESV(Teich): 23.94 ml | |IVSs: 1.37 cm | |LVIDs: 2.57 cm | |LVPWs: 1.77 cm | |SV(Teich): 25.83 ml | |RA Major: 5.85 cm | |RVIDd: 4.63 cm | |Ao Diam: 3.73 cm | |AV Cusp: 2.17 cm | |LA Diam: 4.09 cm | |LA/Ao: 1.09 | |%FS: 34.21 % | |EDV(Teich): 96.42 ml | |EF(Teich): 63.28 % | |ESV(Teich): 35.40 ml | |IVSd: 0.96 cm | |IVSs: 1.32 cm | |LVIDd: 4.58 cm | |LVIDs: 3.01 cm | |LVPWd: 0.90 cm | |LVPWs: 1.32 cm | |SV(Teich): 61.01 ml | |D-E Excursion: 2.10 cm | |E-F Dent: 0.04 m/s | |HR: 89.66 BPM | |AV maxP.47 mmHg | |AV meanP.92 mmHg | |AV Vmax: 0.93 m/s | |AV Vmean: 0.66 m/s | |AV VTI: 15.75 cm | |BELINDA Vmax: 2.78 cm2 | |BELINDA (VTI): 2.50 cm2 | |LVCI Dopp: 1.61 l/minm2 | |LVCO Dopp: 3.44 l/min | |HR: 87.25 BPM | |LVOT maxP.48 mmHg | |LVOT meanP.71 mmHg | |LVSI Dopp: 18.54 ml/m2 | |LVSV Dopp: 39.49 ml | |LVOT Vmax: 0.60 m/s | |LVOT Vmean: 0.39 m/s | |LVOT VTI: 9.27 cm | |MV A Jose David: 0.33 m/s | |MV DecT: 134.40 ms | |MV E Jose David: 0.50 m/s | |MV E/A Ratio: 1.47 | |MV PHT: 39.36 ms | |MVA By PHT: 5.58 cm2 | |MV maxP.04 mmHg | |MV meanP.45 mmHg | |MV Vmax: 0.51 m/s | |MV Vmean: 0.31 m/s | |MV VTI: 10.17 cm | |MVA (VTI): 3.88 cm2 | |Septal e': 0.07 m/s | |Septal E/e': 7.17 | |Lateral e': 0.11 m/s | |Lateral E/e': 4.51 | |HR: 90.16 BPM | |PV maxP.78 mmHg | |PV meanP.34 mmHg | |PV Vmax: 0.44 m/s | |PV Vmean: 0.26 m/s | |PV VTI: 4.44 cm | |RAP: 15 mmHg | |RVSP: 55.16 mmHg | |TR maxP.16 mmHg | |TR Vmax: 3.16 m/s | |TV A Jose David: 0.29 m/s | |TV Dec Dent: 1.93 m/s2 | |TV Dec Time: 188.58 ms | |TV E Jose David: 0.36 m/s | |TV E/A Ratio: 1.22 | | | |Certified Professional Controller: CM | |Authenticated by: Becky Van MD | |Report Date/Time: 10-22-2009 12:06:32 | + + VAS Lower Extremity Venous Bilateral (10/21/2009 9:44 PM PDT) + + | Specimen | + + | | + + + + + | Narrative | Performed At | + + + | [facility] [id number] Ph: | | | Patient Name: ISA LISA Alcaraz Date of : | | | 1955 Medical Record: [id number] Account: [id number] | | | Exam Date/Time: 10/21/2009 20:50 Ordering | | | Physician: Kieran CESAR Order Detail: [id number] Exam Description: US | | | LOWER EXT VENOUS ARUN | | | LISA | | | Kieran ROBERTSON US LOWER EXT VENOUS ARUN 10/21/2009 8:50 PM HISTORY: 54 | | | years. Male. Pulmonary embolus. Evaluation for source. | | | TECHNIQUE: Left lower extremity venous Doppler performed with color | | | Doppler and spectral Doppler waveform analysis. COMPARISON: | | | None. FINDINGS: Normal compressibility, augmentation of flow, and | | | Doppler flow evident within the deep venous system. No evidence of | | | deep venous thrombosis. IMPRESSION: 1. No evidence of lower | | | extremity deep vein thrombosis. | | + + + + + | Procedure Note | + + | Jose Shen - 12/15/2018 6:43 PM PDT | | [facility] | | [facility] [address] | | | | | | Patient Name: LISA ROBERTSON | | Date of : 1955 | | Medical Record: [id number] | | Account: [id number] | | | | | | Exam Date/Time: 10/21/2009 20:50 | | Ordering Physician: Kieran CESAR | | Order Detail: [id number] | | Exam Description: US LOWER EXT VENOUS ARUN | | | | LISA ROBERTSON | | US LOWER EXT VENOUS ARUN | | 10/21/2009 8:50 PM | | | | HISTORY: | | 54 years. Male. Pulmonary embolus. Evaluation for source. | | | | TECHNIQUE: | | Left lower extremity venous Doppler performed with color Doppler and | | spectral Doppler waveform analysis. | | | | COMPARISON: | | None. | | | | FINDINGS: | | Normal compressibility, augmentation of flow, and Doppler flow evident | | within the deep venous system. No evidence of deep venous thrombosis. | | | | IMPRESSION: | | 1. No evidence of lower extremity deep vein thrombosis. | | | | | + + documented in this encounter Visit Diagnoses + + | Diagnosis | + + | Other pulmonary embolism and infarction | + + documented in this encounter"
--- OUTSIDE RECORDS SUMMARY | ~2019-04-16 | XMS | Encounter Summary ---
Demographics + + + | Address | [address] | | | [address] | | | [place] [address] | + + + | Home Phone | | + + + | Preferred Language | Unknown | + + + | Marital Status | | + + + | Yazidism Affiliation | 1013 | + + + | Race | Unknown | + + + | Ethnic Group | Unknown | + + + Author + + + | Author | [facility] | | | and [place] | + + + | Organization | [facility] | | | and [...] Team Providers + +------+ + | Care Public Relations Director Name | Role | Phone | + +------+ + PCP | Unavailable | + +------+ + Encounter Details +--------+ + + + + | Date | Type | Department | Care Team | Description | +--------+ + + + + | 11/27/ | Hospital | [facility] | Chuy Mei | | | 2006 | Encounter | [facility] | [address] [facility] | | | | | CLINICAL DECISION | [address] | | | | | [address] [facility] | [id number] | | | | | [place], [place] | | | | | | [address] | | | | | | [phone] | | | +--------+ + + + [...]
--- OUTSIDE RECORDS SUMMARY | ~2019-04-16 | XMS | Encounter Summary ---
Demographics + + + | Address | [address] | | | [address] | | | [place] [address] | + + + | Home Phone | | + + + | Preferred Language | Unknown | + + + | Marital Status | | + + + | Baptist Affiliation | 1013 | + + + | Race | Unknown | + + + | Ethnic Group | Unknown | + + + Author + + + | Author | [facility] | | | and [place] | + + + | Organization | [facility] | | | [...] Team Providers + +------+ + | Care White Washer Piler Name | Role | Phone | + +------+ + | Kian Murillo MD | PCP | | + +------+ + Encounter Details +--------+ + + + + | Date | Type | Department | Care Team | Description | +--------+ + + + + | 10/21/ | Orders Only | [facility] | Conversion | | | 2009 | | CONVERSION | Transaction, | | | | | INTERFACES | Provider Unknown | | | | | [phone] | [phone] | | | | | | (Fax) | | +--------+ + + + + [...] | + +--------+ + + + | CT ANGIOGRAM | Routin | 10/21/2009 | | Results for this | | PULMONARY | e | 6:28 AM | | procedure are in the | | | | PDT | | results section. | + +--------+ + + + documented in this encounter Results CT Angiogram Pulmonary w Contrast (10/21/2009 6:28 AM PDT) + + | Specimen | + + | | + + + + + | Narrative | Performed At | + + + | Study was foreign film entered for reference only. | | + + + + + | Procedure Note | + + | Jose Shen Conversion - 12/15/2018 6:43 PM PDT Study was foreign film entered for | | reference only. | + + documented in this encounter Visit Diagnoses Not on filedocumented in this encounter"
--- OUTSIDE RECORDS SUMMARY | ~2019-04-16 | XMS | Encounter Summary ---
Demographics + + + | Address | [address] | | | [address] | | | [place] [address] | + + + | Home Phone | | + + + | Preferred Language | Unknown | + + + | Marital Status | | + + + | Synagogue Affiliation | 1013 | + + + | Race | Unknown | + + + | Ethnic Group | Unknown | + + + Author + + + | Author | [facility] | | | and [place] | + + + | Organization | [facility] | | | [...] Team Providers + +------+ + | Care Profile Stitching Machine Operator Name | Role | Phone | + +------+ + | Bennie Lewis MD | PCP | | + +------+ + Reason for Visit Auth/Cert +--------+--------+ + + + + | Status | Reason | Specialty | Diagnoses / | Referred By | Referred To | | | | | Procedures | Contact | Contact | +--------+--------+ + + + + | | | | Diagnoses | | Guerda, | | | | | Hx of | | Matias Sanchez MD | | | | | colonic | | [address], | | | | | polyp Long | | [address] | | | | | term | | [place], | | | | | (current) | | [place] [address] | | | | | use of | | Phone: | | | | | anticoagulan | | [phone] | | | | | ts 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 | | | | | disease, | | | | | | | angina | | | | | | | presence | | | | | | | unspecified, | | | | | | | unspecified | | | | | | | vessel or | | | | | | | lesion type, | | | | | | | unspecified | | | | | | | whether | | | | | | | [place] or | | | | | | | transplanted | | | | | | | heart | | | | | | | Procedures | | | | | | | FL | | | | | | | COLONOSCOPY | | | | | | | FLX DX | | | | | | | W/COLLJ SPEC | | | | | | | WHEN PFRMD | | | | | | | FL | | | | | | | COLONOSCOPY | | | | | | | W/BIOPSY | | | | | | | SINGLE/MULTI | | | | | | | PLE FL | | | | | | | COLSC FLX | | | | | | | W/RMVL OF | | | | | | | TUMOR POLYP | | | | | | | LESION SNARE | | | | | | | TQ FL | | | | | | | ANESTHESIA | | | | | | | LOWER INTST | | | | | | | ENDOSCOPIC | | | | | | | PX NOS | | | | | | | COLONOSCOPY | | | +--------+--------+ + + + + Encounter Details +--------+ + + + + | Date | Type | Department | Care Team | Description | +--------+ + + + + | 03/28/ | Anesthesia | [facility] | Dahiana Greg | | | 2019 | Event | [facility] | DO Sameer [address] | | | | [address] | [facility] | | | | | [place], [place] | [place] [address] | | | | | [address] | [phone] | | | | | [phone] | | | +--------+ + + + + Anesthesia Record + + + + + | Procedure Name | Responsible | Anesthesia Start | Anesthesia Stop Time | | | Anesthesiologist | Time | | + + + + + | COLONOSCOPY (N/A | Greg Talbot, | 03/28/19 1130 | 03/28/19 1158 | | Rectum) | DO | | | + + + + + +----+---+ + + | Da | T | Event | Comment | | te | i | | | | | m | | | | | e | | | +----+---+ + + | 12 | 1 | An Checkout | Pre-use anesthesia machine/equipment checkout. | | /0 | 1 | | | | 6/ | 0 | | | | 20 | 2 | | | | 19 | | | | +----+---+ + + | | 1 | | | | | 1 | | | | | 2 | | | | | 7 | | | +----+---+ + + | | 1 | An Start | Reassessment prior to anesthesia induction/procedure. | | | 1 | | | | | 3 | | | | | 0 | | | +----+---+ + + | | 1 | AN | Per surgeon request | | | 1 | Antibiotic | | | | 3 | declined | | | | 2 | | | +----+---+ + + | | 1 | Pre-Procedu | | | | 1 | ral Timeout | | | | 3 | Completed | | | | 4 | | | +----+---+ + + | | 1 | First | | | | 1 | Inc/Proc St | | | | 3 | | | | | 5 | | | +----+---+ + + | | 1 | An | | | | 1 | Induction | | | | 3 | | | | | 6 | | | +----+---+ + + | | 1 | Breathing | | | | 1 | Spontaneous | | | | 3 | ly | | | | 6 | | | +----+---+ + + | | 1 | an stop | | | | 1 | data | | | | 5 | | | | | 4 | | | +----+---+ + + | | 1 | An Stop | Patient handed off to recovery nurse. | | | 5 | | | | | 8 | | | +----+---+ + + +------+ | Meds | +------+ + + + | Name | Total | + + + | propofol (DIPRIVAN) injection | 100 mg | | (bolus) (20 mL) | | + + + | propofol | 283.15 mg | + + + | lidocaine 2% | 100 mg | + + + | NS (Infusion) | 0 mL | + + + + + | No agents on file. | + + + + | No blood administrations on file. | + + +--------+ + +---------+ | Type | Details | Placement | Removal | +--------+ + +---------+ | Periph | 03/28/19; 1120; Right; Forearm; | 03/28/19 1120 by | | | lizbethl | [id number] catheter system; | Riya Mason, | | | IV | 20 gauge, 1 1/4 in length; | RN | | | | distraction, intradermal | | | | | injection | | | +--------+ + +---------+ documented in this encounter Social History + +-------+ +--------+------+ | Tobacco [...] Diagnoses Not on filedocumented in this encounter Administered Medications + +--------+ +--------+------+------+ | Medication Order | MAR | Action | Dose | Rate | Site | | | Action | Date | | | | + +--------+ +--------+------+------+ | lidocaine (PF) 2% injection | Given | 03/28/20 | 100 mg | | | | Intravenous, PRN, Starting Fri | | 19 11:36 | | | | | 03/28/19 at 1136, Anesthesia | | AM PST | | | | | Intra-op | | | | | | + +--------+ +--------+------+------+ +---+---+ | | | +---+---+ + +-------+ +-------+---+---+ | propofol (DIPRIVAN) injection | Given | 03/28/20 | 20 mg | | | | Intravenous, PRN, Starting Fri | | 19 11:41 | | | | | 03/28/19 at 1136, Anesthesia | | AM PST | | | | | Intra-op | | | | | | + +-------+ +-------+---+---+ +-------+ +-------+---+---+ | Given | 03/28/20 | 10 mg | | | | | 19 11:39 | | | | | | AM PST | | | | +-------+ +-------+---+---+ | Given | 03/28/20 | 20 mg | | | | | 19 11:38 | | | | | | AM PST | | | | +-------+ +-------+---+---+ +---+---+ | | | +---+---+ + + + + +-------+---+ | propofol (DIPRIVAN) injection | Rate/Dos | 03/28/20 | 140 | 83.7 | | | Intravenous, CONTINUOUS PRN, | e Change | 19 11:47 | mcg/kg/m | mL/hr | | | Starting 03/28/19 at 1136, | | AM PST | in | | | | Anesthesia Intra-op | | | | | | + + + + +-------+---+ + + + +--------+---+ | Rate/Dose Change | 03/28/20 | 180 | 107.7 | | | | 19 11:44 | mcg/kg/m | mL/hr | | | | AM PST | in | | | + + + +--------+---+ | New Bag | 03/28/20 | 200 | 119.6 | | | | 19 11:36 | mcg/kg/m | mL/hr | | | | AM PST | in | | | + + + +--------+---+ +---+---+ | | | +---+---+ + +---------+ +---+---+---+ | sodium chloride 0.9% (NS) | New Bag | 03/28/20 | | | | | infusion Intravenous, CONTINUOUS | | 19 11:10 | | | | | PRN, Starting 03/28/19 at | | AM PST | | | | | 1110, Anesthesia Intra-op | | | | | | + +---------+ +---+---+---+ +---+---+ | | | +---+---+ documented in this encounter"
--- OUTSIDE RECORDS SUMMARY | ~2019-04-16 | XMS | Encounter Summary ---
Demographics + + + | Address | [address] | | | [address] | | | [place] [address] | + + + | Home Phone | | + + + | Preferred Language | Unknown | + + + | Marital Status | | + + + | Bahai Affiliation | 1013 | + + + | Race | Unknown | + + + | Ethnic Group | Unknown | + + + Author + + + | Author | [facility] | | | and [place] | + + + | Organization | [facility] | | | [...] Team Providers + +------+ + | Care Side Stitcher Name | Role | Phone | + [...] Provider Unknown | | | | | [phone] | [phone] | | | | | | (Fax) [...]
--- OUTSIDE RECORDS SUMMARY | ~2019-04-16 | XMS | Encounter Summary ---
Demographics + + + | Address | [address] | | | [address] | | | [place] [address] | + + + | Home Phone | | + + + | Preferred Language | Unknown | + + + | Marital Status | | + + + | Adventism Affiliation | 1013 | + + + | Race | Unknown | + + + | Ethnic Group | Unknown | + + + Author + + + | Author | [facility] | | | and [place] | + + + | Organization | [facility] [...] Team Providers + +------+ + | Care M1A1 Tank Crewman Name | Role | Phone | + [...] | | colonic | | [address], | | | | | polyp Long | | [address] | | | | | term | | [place], | | | | | (current) | | [place] [address] | | | | | use of | | Phone: | | | | | anticoagulan | | [phone] | | | | | ts Coronary | | Fax: | | | | | artery | | [phone] | | | | | disease, | [...] | | | | | | | kiana or | | | | | | | transplanted | | | | | | | heart | | | | | | | Procedures | | | | | | | VT | | | | | | | COLONOSCOPY | | | | | | | FLX DX | | | | | | | W/COLLJ SPEC | | | | | | | WHEN PFRMD | | | | | | | [place] | | | | | | | COLONOSCOPY | | | | | | | W/BIOPSY | | | | | | | SINGLE/MULTI | | | | | | | PLE VT | | | | | | | COLSC FLX | | | | | | | W/RMVL OF | | | | | | | TUMOR POLYP | | | | | | | LESION SNARE | | | | | | | TQ VT | | | | | | | [...] + + + + | 03/28/ | Hospital | [facility] | Matias Croft MD | Hx of colonic polyp; | | 2019 | Encounter | [facility] | [address], [address] | senior living (current) | | | | [address] | [address] [place] | use of | | | | [place] | [address] | anticoagulants; | | | | [address] | | Coronary artery | | | | [phone] | | disease, angina | | | | | | presence | | | | | | unspecified, | | | | | | unspecified vessel | | | | | | or lesion type, | | | | | | unspecified whether | | | | | | kiana or | | | | | | transplanted heart | +--------+ + + + + Social [...] + + + | Blood Pressure | 107/61 | 03/28/2019 11:57 AM | | | | | PST | | + + + + + | Pulse | 58 | 03/28/2019 11:57 AM | | | | | PST | | + + + + + | Temperature | 36.1 C (97 F) | 03/28/2019 11:57 AM | | | | | PST | | + + + + + | Respiratory Rate | 12 | 03/28/2019 11:57 AM | | | | | PST | | + + + + + | Oxygen Saturation | 98% | 03/28/2019 11:57 AM | | | | | PST | | + + + + + | Inhaled Oxygen | - | - | | | Concentration | | | | + + + + + | Weight | 99.7 kg (219 lb 12.8 | 03/28/2019 11:07 AM | | | | oz) | PST | | + + + + + | Height | 175.3 cm (5' 9") | 03/28/2019 11:07 AM | | | | | PST | | + + + + + | Body Mass Index | 32.46 | 03/28/2019 11:07 AM | | | | | PST | | + + + + + documented in this encounter Discharge Instructions Tianna Beaver RN - 03/28/2019 Recovery After Procedural Sedation (Adult) You have been given medicine by vein to make you sleep during your procedure. This may have included both a pain medicine and sleeping medicine. Most of the effects have worn off. But you may still have some drowsiness for the next 6 to 8 hours. Home care Follow these guidelines when you get home: For the next 8 hours, you should be watched by a responsible adult. This person should m tianna sure your condition is not getting worse. Don't drink any alcoholfor the next [address], operate dangerous machinery,make important business or personal decisions , or sign legal documentsduring the next 24 hours. Note: Your healthcare provider may tell you not to take any medicine by mouth for pain or s leep in the next 4 hours. These medicines may react with the medicines you were given in the hospital. This could cause a much stronger response than usual. Follow-up care Follow up with your healthcare provider if you are not alert and back to your usual level o f activity within 12 hours. When to seek medical advice Call your healthcare provider right away if any of these occur: Drowsiness gets worse Weakness or dizziness gets worse Repeated vomiting You can't be awakened Date Last Reviewed: 02/08/201619992604-5414 [employer]. [address] [place] [address], [place] [address]. All righ ts reserved. This information is not intended as a substitute for professional medical care. Always follow your healthcare professional's instructions. Colonoscopy A camera attached to a flexible tube with a viewing lens is used to take video pictures. Colonoscopyis a test to view the inside of your lower digestive tract (colon and rectum). Sometimes it can show the last part of the small intestine (ileum).During the test, smal l pieces of tissue may be removed for testing. This is called a biopsy. Small growths, such as polyps, may also be removed. Why is colonoscopy done? The test is done to help look for colon cancer. And it can help find the source of abdomina l pain,bleeding,and changes in bowel habits. It may be needed once a year, depending on factors such as your: Age Health history Family health history Symptoms Results from any prior colonoscopy Risks and possible complications These include: Bleeding A puncture or tear in the colon Risks of anesthesia A cancer lesion not being seen Getting ready To prepare for the test: Talk with your healthcare provider about the risks of the test (see below). Also ask you r healthcare provider about alternatives to the test. Tell your healthcare provider about any medicines you take. Alsotell him or her about any health conditions you may have. Make sure your rectum and colon are empty for the test. Follow the diet and bowel prep i nstructions exactly. If you don t, the test may need to be rescheduled. Plan for a friend or family member to drive you home after the test. Colonoscopy provides an inside view of the entire colon. You may discuss the results with your doctor right away or at a future visit. During the test The test is usually done in the hospital on an outpatient basis. This means you go home the same day. The procedure takes about 30minutes. During that time: You are given relaxing (sedating) medicine through an IV line.You may be drowsy, or fu lly asleep. The healthcare provider will first give you a physical exam to check for anal andrecta l problems. Then the anus is lubricated and the scope inserted. If you are awake, you may have a feeling similar to needing to have a bowelmovement. Y ou may also feel pressure as air is pumped into the colon. It Shiv to pass gas during the procedure. Biopsy, polyp removal, or other treatments may be done during the test. After the test You may have gas right after the test. It can help to try to pass it to help prevent later bloating. Your healthcare provider may discuss the results with you right away. Or you may n eed to schedule a follow-up visit to talk about the results. After the test, you can go back to your normal eating andother activities. You may be tired from the sedation and need to rest for a few hours. Date Last Reviewed: 02/22/201619999981-7476 [employer]. [address] [place] [address], [place] [address]. All righ ts reserved. This information is not intended as a substitute for professional medical care. Always follow your healthcare professional's instructions. documented in this encounter Medications at Time of Discharge + + + +---------+ + + | Medication | Sig | Dispensed | Refills | Start | End Date | | | | | | Date | | + + + +---------+ + + | albuterol 90 | Inhale 2 puffs into | | 0 | | | | mcg/puff inhaler | the lungs every 6 | | | | | | | hours as needed for | | | | | | | Wheezing. | | | | | + + + +---------+ + + | apixaban (ELIQUIS) | Take 5 mg by mouth 2 | | 0 | | | | 5 mg tablet | times daily. | | | | | + + + +---------+ + + | aspirin (ADULT | Take 81 mg by mouth | | 0 | 05/10/20 | | | ASPIRIN EC LOW | Daily. | | | 10 | | | STRENGTH) 81 MG EC | | | | | | | tablet | | | | | | + + + +---------+ + + | atorvaSTATin | Take 20 mg by mouth | | 0 | | | | (LIPITOR) 20 mg | nightly. | | | | | | tablet | | | | | | + + + +---------+ + + | diclofenac | Apply 4 g topically | | 0 | | | | (VOLTAREN) 1% GEL | 4 times daily. | | | | | + + + +---------+ + + | Escitalopram | TABS | | 0 | /04/11 | | | Oxalate (LEXAPRO PO) | | | | 12 | | + + + +---------+ + + | lisinopril | Take 20 mg by mouth | | 0 | 05/10/20 | | | (PRINIVIL, ZESTRIL) | 2 times daily. | | | 10 | | | 20 mg tablet | | | | | | + + + +---------+ + + | magnesium oxide | Take 420 mg by mouth | | 0 | | | | (MAOX) 420 MG TABS | Daily. | | | | | + + + +---------+ + + | meclizine | Take 25 mg by mouth | | 0 | | | | (ANTIVERT) 25 mg | 3 times daily as | | | | | | tablet | needed. | | | | | + + + +---------+ + + | metoprolol | 0.5 tablet twice | | 0 | 05/10/20 | | | (LOPRESSOR) 100 MG | daily | | | 10 | | | tablet | | | | | | + + + +---------+ + + | mometasone | Inhale 2 puffs into | | 0 | | | | (ASMANEX) 220 | the lungs Daily. | | | | | | mcg/puff inhaler | | | | | | + + + +---------+ + + | montelukast | Take 10 mg by mouth | | 0 | | | | (SINGULAIR) 10 mg | nightly. | | | | | | tablet | | | | | | + + + +---------+ + + | sertraline | Take 50 mg by mouth | | 0 | /10/20 | | | (ZOLOFT) 50 mg | 2 times daily. | | | 10 | | | tablet | | | | | | + + + +---------+ + + | simvastatin | Take 80 mg by mouth | | 0 | 05/10/20 | | | (ZOCOR) 80 mg tablet | 2 times daily. | | | 10 | | + + + +---------+ + + | traMADol (ULTRAM) | 1-2 tablets by mouth | | 0 | 02/11/20 | | | 50 mg tablet | every 6 hours if | | | 10 | | | | needed for pain | | | | | + + + +---------+ + + | zolpidem (AMBIEN) | Take 10 mg by mouth | | 0 | 12/30/19 | | | 10 mg tablet | nightly. | | | 10 | | + + + +---------+ + + documented as of this encounter Plan of Treatment Not on filedocumented as of this encounter Procedures + +--------+ + + + | Procedure Name | Priori | Date/Time | Associated Diagnosis | Comments | | | ty | | | | + +--------+ + + + | COLONOSCOPY | | 03/28/2019 | Hx of colonic | | | | | 11:30 AM | polyp senior living | | | | | PST | (current) use of | | | | | | anticoagulants | | | | | | Coronary artery | | | | | | disease, angina | | | | | | presence | | | | | | unspecified, | | | | | | unspecified vessel | | | | | | or lesion type, | | | | | | unspecified whether | | | | | | kiana or | | | | | | transplanted heart | | + +--------+ + + + | VT COLONOSCOPY FLX | Routin | 03/28/2019 | | Results for this | | DX W/COLLJ SPEC WHEN | e | 11:24 AM | | procedure are in the | | PFRMD | | PST | | results section. | + +--------+ + + + documented in this encounter Results COLONOSCOPY (03/28/2019 11:24 AM PST) + + | Specimen | + + | | + + + + + | Narrative | Performed At | + + + | Babs | [facility] | | [facility]Patient Name: Julio Robertson | KEELY | | D.Procedure Date: 03/28/2019 11:24 AMMRN: [id number] Number: | | | [id number] of : 1955Note Status: FinalizedAttending MD: | | | RUPERT Brownrocedure Type: | | | ColonoscopyIndications: High risk colon cancer | | | surveillance: Personal history of | | | colonic polypsReferring MD: Bennie Lewis | | | (Referring MD)Medicines: Propofol per | | | AnesthesiaComplications: No immediate complications. | | | Estimated blood loss: | | | None.Procedure: Pre-Anesthesia Assessment: - Prior to the | | | procedure, a History and Physical was performed, and patient | | | medications, allergies and sensitivities were reviewed. The | | | patient's tolerance of previous anesthesia was reviewed. - Prior | | | to the procedure, a History and Physical was performed, and | | | patient medications and allergies were reviewed. The patient is | | | competent. The risks and benefits of the procedure and the sedation | | | options and risks were discussed with the patient. All questions | | | were answered and informed consent was obtained. Patient | | | identification and proposed procedure were verified by the | | | physician, the nurse, the anesthesiologist and the home theatre technician | | | in the endoscopy suite. Mental Status Examination: alert and | | | oriented. Airway Examination: normal oropharyngeal airway and | | | neck mobility and Mallampati Class III (part of the uvula and | | | soft palate visualized). Prophylactic Antibiotics: The patient | | | does not require prophylactic antibiotics. Prior Anticoagulants: | | | The patient has taken Eliquis (apixaban), last dose was 1 day prior | | | to procedure. ASA Grade Assessment: III - A patient with | | | severe systemic disease. After reviewing the risks and | | | benefits, the patient was deemed in satisfactory condition to | | | undergo the procedure. The anesthesia plan was to use monitored | | | anesthesia care (MAC). Immediately prior to administration of | | | medications, the patient was re-assessed for adequacy to | | | receive sedatives. The heart rate, respiratory rate, oxygen | | | saturations, blood pressure, adequacy of pulmonary ventilation, and | | | response to care were monitored throughout the procedure. The | | | physical status of the patient was re-assessed after the | | | procedure. - After reviewing the risks and benefits, the patient | | | was deemed in satisfactory condition to undergo the procedure. | | | - Using IV propofol under the supervision of an | | | anesthesiologist was determined to be medically necessary for | | | this procedure based on age 65 or older and severe comorbidity | | | (greater than ASA Grade II). - Immediately prior to | | | administration of medications, the patient was re-assessed for | | | adequacy to receive sedatives. - The heart rate, respiratory | | | rate, oxygen saturations, blood pressure, adequacy of pulmonary | | | ventilation, and response to care were monitored throughout | | | the procedure. - The physical status of the patient was | | | re-assessed after the procedure. After I obtained informed | | | consent, the scope was passed under direct vision. Throughout | | | the procedure, the patient's blood pressure, pulse, and oxygen | | | saturations were monitored continuously. The Colonoscope was | | | introduced through the anus and advanced to the cecum, identified by | | | the appendiceal orifice, ileocecal valve and palpation. The | | | colonoscopy was performed without difficulty. The patient | | | tolerated the procedure well. The quality of the bowel | | | preparation was excellent.Scope Withdrawal Time: 0 hours 8 minutes 33 | | | seconds Findings: The perianal and digital rectal examinations | | | were normal. Pertinent negatives include normal sphincter tone, | | | no palpable rectal lesions and normal prostate (size, shape, | | | and consistency). The descending colon and transverse colon were | | | significantly redundant. The exam was otherwise without | | | abnormality. The retroflexed view of the distal rectum and anal | | | verge was normal and showed no anal or rectal | | | abnormalities.Impression: - Redundant colon. - The | | | examination was otherwise normal. - The distal rectum and anal | | | verge are normal on retroflexion view. - No specimens | | | collected.Recommendation: - Patient has a contact number | | | available for emergencies. The signs and symptoms of potential | | | delayed complications were discussed with the patient. Return | | | to normal activities tomorrow. Written discharge instructions | | | were provided to the patient. - Discharge patient to home | | | (ambulatory). - Resume previous diet today. - Continue | | | present medications. - Resume Eliquis (apixaban) at prior dose | | | today. - Repeat colonoscopy in 5 years for surveillance. - | | | Return to primary care physician as previously scheduled. - | | | Telephone GI clinic if symptomatic.Matias Croft MD03/28/2019 | | | 12:05:28 PMThis report has been signed electronically.Note Initiated | | | On: 03/28/2019 11:24 AMNumber of Addenda: 0 [facility] | | | [facility] | | | - Continue present medications. | | | - Resume Eliquis (apixaban) at prior dose today. | | | - Repeat colonoscopy in 5 years for surveillance. | | | - Return to primary care physician as previously scheduled. | | | - Telephone GI clinic if symptomatic. | | |Matias Croft MD | | |03/28/2019 12:05:28 PM | | |This report has been signed electronically. | | |Note Initiated On: 03/28/2019 11:24 AM | | |Number of Addenda: 0 | | | [facility] | | + + + + +---------+ + + | Performing | Address | City/State/Zipcode | Phone Number | | Organization | | | | + +---------+ + + | [facility] | | | | + +---------+ + + documented in this encounter Visit Diagnoses + + | Diagnosis | + + | Hx of colonic polyp Personal history of colonic polyps | + + | tank terminal gauger (current) use of anticoagulants Long-term (current) use of anticoagulants | + + | Coronary artery disease, angina presence unspecified, unspecified vessel or lesion | | type, unspecified whether kiana or transplanted heart | + + documented in this encounter Admitting Diagnoses + + | Diagnosis | + + | Hx of colonic polyp Personal history of colonic polyps | + + | tank terminal gauger (current) use of anticoagulants Long-term (current) use of anticoagulants | + + | Coronary artery disease, angina presence unspecified, unspecified vessel or lesion | | type, unspecified whether kiana or transplanted heart | + + documented in this encounter Administered Medications + +--------+---------+------+------+------+ | Medication Order | MAR | Action | Dose | Rate | Site | | | Action | Date | | | | + +--------+---------+------+------+------+ + +---+ | albuterol-ipratropium 2.5-0.5 | | | mg/3 mL nebulizer solution 3 mL | | | 3 mL, Nebulization, ONCE PRN, | | | Wheezing, Starting Sun03/28/19 at | | | 1216, For 1 dose, Pre-op | | + +---+ | | | + +---+ | albuterol-ipratropium 2.5-0.5 | | | mg/3 mL nebulizer solution 3 mL | | | 3 mL, Nebulization, ONCE PRN, | | | Wheezing, Shortness of Breath, | | | Starting Sun03/28/19 at 1217, For | | | 1 dose, Recovery/Phase I | | + +---+ | | | + +---+ | dextrose 50% injection 12.5-25 | | | g 12.5-25 g, Intravenous, EVERY | | | 15 MIN PRN, Low Blood Sugar, Give | | | 12.5g (25 mL) IV if blood | | | glucose 50-69 mg/dL. Give 25g | | | (50 mL) IV if blood glucose < 50, | | | Starting Sun03/28/19 at 1216, | | | Repeat in 15 min if blood glucose | | | remains < 70 mg/dL. Repeat | | | blood glucose in 30 min once | | | blood glucose > 70., Pre-op | | + +---+ | | | + +---+ | dextrose 50% injection 12.5-25 | | | g 12.5-25 g, Intravenous, EVERY | | | 15 MIN PRN, Low Blood Sugar, For | | | hypoglycemia. Give 12.5g (25ml) | | | IV if blood glucose 50-69 | | | mg/dL. Give 25g (50ml) IV if | | | blood glucose < 50, Starting Fri | | | 03/28/19 at 1217, Give over 2 min. | | | Repeat in 15 min if blood | | | glucose remains < 70 mg/dL. | | | Repeat blood glucose in 30 min | | | once blood glucose > 70., | | | Recovery/Phase I | | + +---+ | | | + +---+ | lactated ringers (LR) infusion | | | at 100 mL/hr, Intravenous, | | | CONTINUOUS, Starting Sun03/28/19 | | | at 1245, Pre-op | | + +---+ | | | + +---+ | lactated ringers (LR) infusion | | | at 10-100 mL/hr, Intravenous, | | | CONTINUOUS, Starting Sun03/28/19 | | | at 1245, Use this instead of NS | | | unless patient is on dialysis., | | | Pre-op | | + +---+ | | | + +---+ | ondansetron (ZOFRAN ODT) | | | disintegrating tablet 4 mg 4 mg, | | | Oral, EVERY 6 HOURS PRN, Nausea, | | | Vomiting, Starting Sun03/28/19 | | | at 1217, First line agent, | | | Post-op/Phase II | | + +---+ | | | + +---+ | ondansetron (ZOFRAN) injection | | | 4 mg 4 mg, Oral, EVERY 4 HOURS | | | PRN, Nausea, Vomiting, Starting | | | Sun03/28/19 at 1217, | | | Recovery/Phase I | | + +---+ | | | + +---+ | ondansetron (ZOFRAN) injection | | | 4 mg 4 mg, Intravenous, ONCE | | | PRN, Nausea, Starting Sun03/28/19 | | | at 1217, For 1 dose, | | | Post-op/Phase II | | + +---+ | | | + +---+ | ondansetron (ZOFRAN) injection | | | 4 mg 4 mg, Intravenous, EVERY 6 | | | HOURS PRN, Nausea, Vomiting, | | | Starting Sun03/28/19 at 1217, | | | First line agent. Use PO option | | | unless NPO status or unable to | | | tolerate., Post-op/Phase II | | + +---+ | | | + +---+ | sodium chloride 0.9% (NS) | | | infusion at 10-100 mL/hr, | | | Intravenous, CONTINUOUS, Starting | | | Sun03/28/19 at 1245, TKO. Use | | | this instead of LR if patient is | | | on dialysis., Pre-op | | + +---+ | | | + +---+ documented in this encounter
--- OUTSIDE RECORDS SUMMARY | ~2019-04-16 | XMS | Encounter Summary ---
Demographics + + + | Address | [address] | | | [address] | | | [place] [address] | + + + | Home Phone | | + + + | Preferred Language | Unknown | + + + | Marital Status | | + + + | Zoroastrian Affiliation | 1013 | + + + [...] Providers + +------+ + | Care Computer Hardware Engineer Name | Role | Phone | + +------+ + PCP | Unavailable | + +------+ + Encounter Details +--------+ + + + + | Date | Type | Department | Care Team | Description | +--------+ + + + + | 04/24/ | Hospital | [facility] | Ayo Navas E, | | | 2006 | Encounter | MED CTR MP INTRA OP | [address] [facility] | | | | | [address] | [place] | | | | | [place] | [address] | | | | | [address] | | | | | | [phone] | | | +--------+ + + + [...]
--- OUTSIDE RECORDS SUMMARY | ~2019-04-16 | XMS | Encounter Summary ---
Demographics + + + | Address | [address] | | | [address] | | | [place] [address] | + + + | Home Phone | | + + + | Preferred Language | Unknown | + + + | Marital Status | | + + + | Worship Affiliation | 1013 | + + + | Race | Unknown | + + + | Ethnic Group | Unknown | + + + Author + + + | Author | [facility] | | | and [place] | + + + | Organization | [facility] | | | and [...] Team Providers + +------+ + | Care General Internist And Physician Leader Name | Role | Phone | + +------+ + PCP | Unavailable | + +------+ + Encounter Details +--------+ + + + + | Date | Type | Department | Care Team | Description | +--------+ + + + + | 06/19/ | Hospital | [facility] | Ayo Navas, | | | 2007 | Encounter | MED CTR XRAY [address] | [address] [place] [address] | | | | | [place] | [place] | | | | | [place] [id number] | [address] | | | | | [phone] | | | +--------+ + + + [...]
--- OUTSIDE RECORDS SUMMARY | ~2019-04-16 | XMS | Clinical Summary ---
Demographics + + + | Address | [address] | | | [place] [address] | + + + | Home Phone | | + + + | Preferred Language | Unknown | + + + | Marital Status | | + + + | Anabaptist Affiliation | 1013 | + + + | Race | Unknown | + + + | Ethnic Group | Unknown | + + + Author + + + | Author | [facility] (Historical as of | | | 12-07-18) | + + + | Organization | [facility] (Historical as of | | | 12-07-18) [...] [place], [place] | | | | | [address] | | + + + + + Care Team Providers + +------+ + | Care Diesel Service Apprentice Name | Role | Phone | + [...]
--- OUTSIDE RECORDS SUMMARY | ~2019-04-16 | XMS | Encounter Summary ---
Demographics + + + | Address | [address] | | | [address] | | | [place] [address] | + + + | Home Phone | | + + + | Preferred Language | Unknown | + + + | Marital Status | | + + + | Presybeterian Affiliation | 1013 | + + + [...] Providers + +------+ + | Care Dry Mixer Name | Role | Phone | + +------+ + PCP | Unavailable | + +------+ + Encounter Details +--------+ + + + + | Date | Type | Department | Care Team | Description | +--------+ + + + + | 10/19/ | Hospital | [facility] | Ayo Navas E, | | | 2009 | Encounter | MED CTR MP INTRA OP | [address] [facility] | | | | | [address] | [place] | | | | | [place] | [address] | | | | | [address] | | | | | | [phone] | | | +--------+ + + + [...]
--- OUTSIDE RECORDS SUMMARY | ~2019-04-16 | XMS | Encounter Summary ---
Demographics + + + | Address | [address] | | | [address] | | | [place] [address] | + + + | Home Phone | | + + + | Preferred Language | Unknown | + + + | Marital Status | | + + + | Quaker Affiliation | 1013 | + + + | Race | Unknown | + + + | Ethnic Group | Unknown | + + + Author + + + | Author | [facility] | | | and [place] | + + + | Organization | [facility] | | | and [...] Team Providers + +------+ + | Care Real Estate Operations Manager Name | Role | Phone | + [...] | | colonic | | [address], | | | | | polyp Long | | [address] | | | | | term | | [place], | | | | | (current) | | [place] [address] | | | | | use of | | Phone: | | | | | anticoagulan | | [phone] | | | | | ts Coronary | | Fax: | | | | | artery | | [phone] | | | | | disease, | [...] | | | | | | | [place] or | | | | | | | transplanted | | | | | | | heart | | | | | | | Procedures | | | | | | | [place] | | | | | | | COLONOSCOPY | | | | | | | FLX DX | | | | | | | W/COLLJ SPEC | | | | | | | WHEN PFRMD | | | | | | | [place] | | | | | | | COLONOSCOPY | | | | | | | W/BIOPSY | | | | | | | SINGLE/MULTI | | | | | | | PLE [place] | | | | | | | COLSC FLX | | | | | | | W/RMVL OF | | | | | | | TUMOR POLYP | | | | | | | LESION SNARE | | | | | | | TQ [place] | | | | | | | [...] | | | | | [address] | [facility] | | | | | [place], [place] | [place] [address] | | | | | [address] | [phone] | | | | | [phone] | | | +--------+ + + + [...] [address] | | | lizbethl | [id number] catheter system; | Riya Mason, | | [...]
--- OUTSIDE RECORDS SUMMARY | ~2019-04-16 | XMS | Encounter Summary ---
Demographics + + + | Address | [address] | | | [address] | | | [place] [address] | + + + | Home Phone | | + + + | Preferred Language | Unknown | + + + | Marital Status | | + + + | Judaism Affiliation | 1013 | + + + | Race | Unknown | + + + | Ethnic Group | Unknown | + + + Author + + + | Author | [facility] | | | and [place] | + + + | Organization | [facility] | | | and [...] Team Providers + +------+ + | Care Fitness Studies Teacher Name | Role | Phone | + [...] | [address] | [place] [address] | | | | | [address] | | | | | | [phone] | | | +--------+ + + + [...]
--- OUTSIDE RECORDS SUMMARY | ~2019-04-16 | XMS | Encounter Summary ---
Demographics + + + | Address | [address] | | | [address] | | | [place] [address] | + + + | Home Phone | | + + + | Preferred Language | Unknown | + + + | Marital Status | | + + + | Amish Affiliation | 1013 | + + + | Race | Unknown | + + + | Ethnic Group | Unknown | + + + Author + + + | Author | [facility] | | | and [place] | + + + | Organization | [facility] | | [...] Team Providers + +------+ + | Care Electrical Power Engineer Name | Role | Phone | + +------+ + PCP | Unavailable | + +------+ + Encounter Details +--------+ + + + + | Date | Type | Department | Care Team | Description | +--------+ + + + + | 10/21/ | Hospital | [facility] | Merline Soto | OTHER PULMONARY | | 2009 - | Encounter | [facility] | MD Hodan [address] | EMBOLISM AND | | | | CARE FLOOR [address] [place], [place] | INFARCTION (HCC) | | 10/30/ | | [address] | [address] | | | 2009 | | [place], [place] | | | | | | [address] | Ninfa Garcia MD | | | | | [phone] | [address] | | | | | | [place] [address] | | +--------+ + + + + [...] Performed At | + + + | [facility] [address] Ph: | | | Patient Name: LISA ROBERTSON Date of : | | | 1955 Medical Record: [id number] Account: [id number] | | | Exam Date/Time: 10/24/2009 13:06 [...] - 12/15/2018 6:43 PM PDT | | [facility] | | [facility] [address] | | | | | | Patient Name: LISA ROBERTSON | | Date of : 1955 | | Medical Record: [id number] | | Account: [id number] | | | | | | Exam [...] Performed At | + + + | [place] [address] | | | Patient Name: LISA ROBERTSON Date of : | | | 1955 Medical Record: [id number] Account: [id number] | | | Exam Date/Time: 10/22/2009 07:28 [...] Excursion: 2.10 | | | cm E-F [place]: 0.04 m/s HR: 89.66 BPM AV maxP.47 [...] A Jose David: 0.29 m/s TV Dec [place]: 1.93 m/s2 TV Dec | | | Time: 188.58 ms TV E [place]: 0.36 m/s TV E/A Ratio: 1.22 | | | Transmission Supervisor: CM Authenticated by: Becky Van MD Report | | | Date/Time: 10-22-2009 12:06:32 | | + + + + + | Procedure Note | + + | Jose Shen Conversion - 12/15/2018 6:43 PM [facility] | | [place], [place] [address]Pn: Patient Name: Merlyn ROBERTSON of : | | 1955Medical Record: [id number]: [id number] | | Date/Time: 10/22/2009 07:28Performing Physician: Becky [...] 1.32 cmSV(Teich): 61.01 mlD-E [place]: 2.10 cmE-F [place]: 0.04 m/sHR: | | 89.66 BPMAV maxP.47 mmHgAV meanP.92 mmHgAV Vmax: 0.93 m/Jordyn Vmean: | | 0.66 m/Jordyn VTI: 15.75 cmAVA Vmax: 2.78 cm2AVA (VTI): 2.50 ks5CQTT Dopp: 1.61 | | l/uvas8RTTT Dopp: 3.44 l/minHR: 87.25 BPMLVOT maxP.48 mmHgLVOT [...] VTI: 10.17 cmMVA (VTI): 3.88 | | ca3Extcdy e': 0.07 m/sSeptal E/e': 7.17Lateral e': 0.11 m/sLateral E/e': 4.51HR: | | 90.16 BPMPV maxP.78 mmHgPV meanP.34 mmHgPV Vmax: 0.44 m/sPV Vmean: | | 0.26 m/sPV VTI: 4.44 cmRAP: 15 mmHgRVSP: 55.16 mmHgTR maxP.16 mmHgTR Vmax: | | 3.16 m/sTV A [place]: 0.29 m/sTV Dec [place]: 1.93 m/s2TV Dec Time: 188.58 msTV E [place]: | | 0.36 m/sTV E/A Ratio: 1.22 Transmission Supervisor: PRATIKuthenticated by: Becky Van | | MDReport [...] | |D-E [place]: 2.10 cm | |E-F [place]: 0.04 m/s | |HR: 89.66 BPM | [...] [place]: 0.29 m/s | |TV Dec [place]: 1.93 m/s2 | |TV Dec Time: 188.58 ms | |TV E [place]: 0.36 m/s | |TV E/A Ratio: 1.22 | | | |Transmission Supervisor: CM | |Authenticated by: Becky Van MD | |Report Date/Time: 10-22-2009 12:06:32 | + + VAS Lower Extremity Venous Bilateral (10/21/2009 9:44 PM PDT) + + | Specimen | + + | | + + + + + | Narrative | Performed At | + + + | [facility] [address] Ph: | | | Patient Name: ISA LISA Alcaraz Date of : | | | 1955 Medical Record: [id number] Account: [id number] | | | Exam Date/Time: 10/21/2009 20:50 [...] - 12/15/2018 6:43 PM PDT | | [facility] | | [facility] [address] | | | | | | Patient Name: LISA ROBERTSON | | Date of : 1955 | | Medical Record: [id number] | | Account: [id number] | | | | | | Exam [...]
--- OUTSIDE RECORDS SUMMARY | ~2019-04-16 | XMS | Clinical Summary ---
Demographics + + + | Address | [address] | | | [address] | | | [place] [address] | + + + | Home Phone | | + + + | Preferred Language | Unknown | + + + | Marital Status | | + + + | Hoahaoism Affiliation | 1013 | + + + | Race | Unknown | + + + | Ethnic Group | Unknown | + + + Author + + + | Author | [facility] | | | and [place] | + + + | Organization | [facility] | | | [...] Team Providers + +------+ + | Care Exercise Rider Name | Role | Phone | + +------+ + | Bennie Lewis MD | PCP | | + +------+ + Allergies No Known Allergies Medications + + + +---------+------+------+-------+ | Medication | Sig | Dispensed | Refills | Star | End | Statu | | | | | | t | Date | s | | | | | | Date | | | + + + +---------+------+------+-------+ | sertraline | Take 50 mg by mouth | | 0 | 05/1 | | Activ | | (ZOLOFT) 50 mg | 2 times daily. | | | 0/20 | | e | | tablet | | | | 10 | | | + + + +---------+------+------+-------+ | simvastatin | Take 80 mg by mouth | | 0 | 05/1 | | Activ | | (ZOCOR) 80 mg tablet | 2 times daily. | | | 0/20 | | e | | | | | | 10 | | | + + + +---------+------+------+-------+ | metoprolol | 0.5 tablet twice | | 0 | 05/1 | | Activ | | (LOPRESSOR) 100 MG | daily | | | 0/20 | | e | | tablet | | | | 10 | | | + + + +---------+------+------+-------+ | aspirin (ADULT | Take 81 mg by mouth | | 0 | 05/1 | | Activ | | ASPIRIN EC LOW | Daily. | | | 0/20 | | e | | STRENGTH) 81 MG EC | | | | 10 | | | | tablet | | | | | | | + + + +---------+------+------+-------+ | lisinopril | Take 20 mg by mouth | | 0 | 05/1 | | Activ | | (PRINIVIL, ZESTRIL) | 2 times daily. | | | 0/20 | | e | | 20 mg tablet | | | | 10 | | | + + + +---------+------+------+-------+ | zolpidem (AMBIEN) | Take 10 mg by mouth | | 0 | 09/0 | | Activ | | 10 mg tablet | nightly. | | | 8/20 | | e | | | | | | 10 | | | + + + +---------+------+------+-------+ | traMADol (ULTRAM) | 1-2 tablets by mouth | | 0 | 10/2 | | Activ | | 50 mg tablet | every 6 hours if | | | 1/20 | | e | | | needed for pain | | | 10 | | | + + + +---------+------+------+-------+ | Escitalopram | TABS | | 0 | 09/1 | | Activ | | Oxalate (LEXAPRO PO) | | | | 2/20 | | e | | | | | | 12 | | | + + + +---------+------+------+-------+ | albuterol 90 | Inhale 2 puffs into | | 0 | | | Activ | | mcg/puff inhaler | the lungs every 6 | | | | | e | | | hours as needed for | | | | | | | | Wheezing. | | | | | | + + + +---------+------+------+-------+ | apixaban (ELIQUIS) | Take 5 mg by mouth 2 | | 0 | | | Activ | | 5 mg tablet | times daily. | | | | | e | + + + +---------+------+------+-------+ | atorvaSTATin | Take 20 mg by mouth | | 0 | | | Activ | | (LIPITOR) 20 mg | nightly. | | | | | e | | tablet | | | | | | | + + + +---------+------+------+-------+ | magnesium oxide | Take 420 mg by mouth | | 0 | | | Activ | | (MAOX) 420 MG TABS | Daily. | | | | | e | + + + +---------+------+------+-------+ | mometasone | Inhale 2 puffs into | | 0 | | | Activ | | (ASMANEX) 220 | the lungs Daily. | | | | | e | | mcg/puff inhaler | | | | | | | + + + +---------+------+------+-------+ | montelukast | Take 10 mg by mouth | | 0 | | | Activ | | (SINGULAIR) 10 mg | nightly. | | | | | e | | tablet | | | | | | | + + + +---------+------+------+-------+ | diclofenac | Apply 4 g topically | | 0 | | | Activ | | (VOLTAREN) 1% GEL | 4 times daily. | | | | | e | + + + +---------+------+------+-------+ | meclizine | Take 25 mg by mouth | | 0 | | | Activ | | (ANTIVERT) 25 mg | 3 times daily as | | | | | e | | tablet | needed. | | | | | | + + + +---------+------+------+-------+ Active Problems + + + | Problem | Noted Date | + + + | Hx of colonic polyp | 03/17/2019 | + + + + + | Overview: Added automatically from request for surgery | | [id number] | + + + + + | manager intermediate (current) use of anticoagulants | 03/17/2019 | + + + + + | Overview: Added automatically from request for surgery | | [id number] | + + + + + | Coronary artery disease, angina presence unspecified, unspecified | 03/17/2019 | | vessel or lesion type, unspecified whether [place] or | | | transplanted heart | | + + + + + | Overview: Added automatically from request for surgery | | [id number] | + + + +---+ | KNEE PAIN, BILATERAL | | + +---+ Encounters +--------+ + + + + | Date | Type | Specialty | Care Team | Description | +--------+ + + + + | 03/28/ | Surgery | | Matias Croft MD | COLONOSCOPY | | 2019 | | | | | +--------+ + + + + | 03/28/ | Anesthesia | | Greg Talbot | | | 2019 | Event | | Sameer, DO | | +--------+ + + + + | 03/28/ | Hospital | | Matias Croft MD | Hx of colonic polyp; | | 2018 | Encounter | | | intermediate (current) | | | | | | use of | | | | | | anticoagulants; | | | | | | Coronary artery | | | | | | disease, angina | | | | | | presence | | | | | | unspecified, | | | | | | unspecified vessel | | | | | | or lesion type, | | | | | | unspecified whether | | | | | | [place]igh[place] or | | | | | | transplanted heart | +--------+ + + + + | 01/29/ | Office | Gastroenterology | Matias Croft MD | Hx of colonic polyp | | 2018 | Visit | | | (Primary Dx); Long | | | | | | term (current) use | | | | | | of anticoagulants; | | | | | | Coronary artery | | | | | | disease, angina | | | | | | presence | | | | | | unspecified, | | | | | | unspecified vessel | | | | | | or lesion type, | | | | | | unspecified whether | | | | | | [place]igh[place] or | | | | | | transplanted heart | +--------+ + + + + from Last 3 Months Immunizations + + + + | Name | Administration Dates | Next Due | + + + + | INFLUENZA PF | 02/27/2012 | | | TRIVALENT(PED/ADOL/A | | | | JESSICA)BRIE | | | + + + + Family History + + +------+ + | Medical History | Relation | Name | Comments | + + +------+ + | Heart attack | Brother | | | + + +------+ + | Other (see comment) | Brother | | Stented x3 | + + +------+ + | No known problems | Daughter | | | + + +------+ + | Alzheimer's disease | Mother | | | + + +------+ + | Heart attack | Mother | | | + + +------+ + | No known problems | Sister | | | + + +------+ + | No known problems | Sister | | | + + +------+ + | Colon cancer | Neg Hx | | | + + +------+ + + + + + + | Relation | Name | Status | Comments | + + + + + | Brother | | | | + + + + + | Daughter | | | | + + + + + | Father | | | Lymphoma | | | | (Age | | | | | 58) | | + + + + + | Mother | | | Heart attack | | | | (Age | | | | | 80) | | + + + + + | Other | Adopted | Alive | | | | child | | | + + + + + | Other | Adopted | Alive | | | | child | | | + + + + + | Other | Adopted | Alive | | | | child | | | + + + + + | Sister | | | | + + + + + | Sister | | | | + + + + + Social History + [...] recent travel history available. | + + Last Filed Vital Signs + + + [...] | | + + + + + Plan of Treatment + + + + + | Health Maintenance | Due Date | Last Done | Comments | + + + + + | Hepatitis C | | | | | Screening | 5 | | | + + + + + | Vaccine: | | | | | Pneumococcal 19-64 | 1 | | | | (1 of 1 - PPSV23) | | | | + + + + + | Vaccine: | | | | | Dtap/Tdap/Td (1 - | 6 | | | | Tdap) | | | | + + + + + | Vaccine: Zoster (1 | | | | | of 2) | 5 | | | + + + + + | Vaccine: Influenza | | 02/27/2012 | | | (#1) | 9 | | | + + + + + | Colorectal Cancer | | 03/28/2019, 11/04/2008 | | | Screening | 4 | | | | (Colonoscopy) | | | | + + + + + Procedures + +--------+ + + + | Procedure Name | Priori | Date/Time | Associated Diagnosis | Comments | | | ty | | | | + +--------+ + + + | COLONOSCOPY | | 03/28/2019 | Hx of colonic | | | | | 11:30 AM | polyp intermediate | | | | | PST | [...] whether | | | | | | resighini or | | | | | | transplanted heart | | + +--------+ + + + | PA COLONOSCOPY FLX | Routin | 03/28/2019 | | Results for this | | DX W/JTJ SPEC WHEN | e | 11:24 AM | | procedure are in the | | PFRMD | | PST | | results section. | + +--------+ + + + from Last 3 Months Results COLONOSCOPY (03/28/2019 11:24 AM PST) + + | Specimen | + + | | + + + + + | Narrative | Performed At | + + + | [facility] | [facility] | | [facility]ro[facility]ologyPatient Name: Julio Robertson | [place] | | D.Procedure Date: 03/28/2019 11:24 AMMRN: [id number] Number: | | | [id number] of : 1955Note Status: FinalizedAttending MD: | | | Matias Croft MDProcedure Type: | | | ColonoscopyIndications: High risk [...] physician, the nurse, the anesthesiologist and the education technician | | | in the endoscopy [...] On: 03/28/2019 11:24 AMNumber of Addenda: 0 [facility] | | | [facility] | | | - Continue present medications. [...] of Addenda: 0 | | | [facility] | | + + + + +---------+ + + | Performing | Address | City/State/Zipcode | Phone Number | | Organization | | | | + +---------+ + + | [facility] | | | | + +---------+ + + from Last 3 Months Insurance + +--------+ +--------+-------+---------+--------+ | Payer | Benefi | Subscriber | Effect | Phone | Address | Type | | | t Plan | ID | sylvie | | | | | | / | | Dates | | | | | | Group | | | | | | + +--------+ +--------+-------+---------+--------+ | [employer] [place] | [id number] | | | | Indemn | | | CHOICE | | 019-Pr | | | ity | | | PC3 | | esent | | | | + +--------+ +--------+-------+---------+--------+ + +--------+ +--------+ + + | Guarantor Name | Accoun | Relation to | Date | Phone | Billing Address | | | t Type | Patient | of | | | | | | | | | | + +--------+ +--------+ + + | Julio Robertson | Person | Self | [birth year] | | [address] | | | al/Fam | | 1956 | [phone] | [address] [place] [address] | | | neal | | | 5 (Home) | [place] [address] | + +--------+ +--------+ + + Advance Directives + + + + + | Type | Date Recorded | Patient | Explanation | | | | Office Supervisor | | + + + + + | Power of | | | | | Mother Superior | | | | + + + + + | Advance | 03/28/2019 9:11 | | | | Directive | AM | | | + + + + +
--- OUTSIDE RECORDS SUMMARY | ~2019-04-16 | XMS | Encounter Summary ---
Demographics + + + | Address | [address] | | | [address] | | | [place] [address] | + + + | Home Phone | | + + + | Preferred Language | Unknown | + + + | Marital Status | | + + + | Judaism Affiliation | 1013 | + + + | Race | Unknown | + + + | Ethnic Group | Unknown | + + + Author + + + | Author | [facility] | | | and [place] | + + + | Organization | [facility] | | [...] Team Providers + +------+ + | Care Publicity Manager Name | Role | Phone | [...] | | colonic | | [address], | | | | | polyp Long | | [address] | | | | | term | | [place], | | | | | (current) | | [place] [address] | | | | | use of | | Phone: | | | | | anticoagulan | | [phone] | | | | | ts Coronary | | Fax: | | | | | artery | | [phone] | | | | | disease, | [...] | | | | | | | [place] or | | | | | | | transplanted | | | | | | | heart | | | | | | | Procedures | | | | | | | [place] | | | | | | | COLONOSCOPY | | | | | | | FLX DX | | | | | | | W/COLLJ SPEC | | | | | | | WHEN PFRMD | | | | | | | [place] | | | | | | | COLONOSCOPY | | | | | | | W/BIOPSY | | | | | | | SINGLE/MULTI | | | | | | | PLE [place] | | | | | | | COLSC FLX | | | | | | | W/RMVL OF | | | | | | | TUMOR POLYP | | | | | | | LESION SNARE | | | | | | | TQ [place] | | | | | | | [...] Description | +--------+---------+ + + + | 03/28/ | Surgery | [facility] | Matias Croft MD | COLONOSCOPY | | 2019 | | MED CTR [facility] INTRA OP | [address], [place] | | | | | [address] | [address] [place], [place] | | | | | [place], [place] | [address] | | | | | [address] | | | | | | [phone] | | | +--------+---------+ + + + Social History [...] + documented in this encounter Discharge Instructions Instructions Tianna Cruz RN - 03/28/2019 Recovery After Procedural Sedation [...] You can't be awakened Date Last Reviewed: 02/08/201619998871-4676 [employer]. [address] [place] [address], [place] [address]. All righ ts reserved. This information is [...] for a few hours. Date Last Reviewed: 02/22/201619998334-8758 [employer]. [address] [place] [address]. All righ ts reserved. This information is [...] mg by mouth | | 0 | 05/20 | | | (PRINIVIL, ZESTRIL) | 2 [...] | | | 11:30 AM | polyp snf | | | | | PST | [...] whether | | | | | | [place] or | | | | | | transplanted heart | | + +--------+ + + + | [place] COLONOSCOPY FLX | Routin | 03/28/2019 | [...] + + + | [facility] | [facility] | | [facility] | [place] | | D.Procedure Date: 03/28/2019 11:24 AMMRN: [id number] Number: | | | [id number] of : 1955Note Status: FinalizedAttending MD: | | | Matias Croft , MDProcedure Type: | | | ColonoscopyIndications: High [...] physician, the nurse, the anesthesiologist and the boiler testing technician | | | in the endoscopy [...] On: 03/28/2019 11:24 AMNumber of Addenda: [facility] | | | - Continue present [...] |Number of Addenda: 0 | | | [facility] | | + + + + +---------+ [...] of colonic polyps | + + | snf (current) use of anticoagulants Long-term (current) use of anticoagulants | + + | Coronary artery disease, angina presence unspecified, unspecified vessel or lesion | | type, unspecified whether [place] or transplanted heart | + + documented in this encounter Admitting Diagnoses + + | Diagnosis | + + | Hx of colonic polyp Personal history of colonic polyps | + + | snf (current) use of anticoagulants Long-term (current) use of anticoagulants | + + | Coronary artery disease, angina presence unspecified, unspecified vessel or lesion | | type, unspecified whether [place] or transplanted heart | + + documented [...] ONCE PRN, | | | Wheezing, Starting 03/28/19 at | | | 1216, For 1 dose, Pre-op | | + +---+ | | | + +---+ | albuterol-ipratropium 2.5-0.5 | | | mg/3 mL nebulizer solution 3 mL | | | 3 mL, Nebulization, ONCE PRN, | | | Wheezing, Shortness of Breath, | | | Starting 03/28/19 at 1217, For | | | 1 [...] glucose < 50, | | | Starting 03/28/19 at 1216, | | | Repeat in [...] PRN, Nausea, | | | Vomiting, Starting 03/28/19 | | | at 1217, First line [...]
--- OUTSIDE RECORDS SUMMARY | ~2019-04-16 | XMS | Encounter Summary ---
Demographics + + + | Address | [address] | | | [address] | | | [place] [address] | + + + | Home Phone | | + + + | Preferred Language | Unknown | + + + | Marital Status | | + + + | Buddhist Affiliation | 1013 | + + + | Race | Unknown | + + + | Ethnic Group | Unknown | + + + Author + + + | Author | [facility] | | | and [place] | + + + | Organization | [facility] | | | [...] Team Providers + +------+ + | Care Cone Former Name | Role | Phone | + +------+ + PCP | Unavailable | + +------+ + Encounter Details +--------+ + + + + | Date | Type | Department | Care Team | Description | +--------+ + + + + | 10/19/ | Hospital | [facility] | Ayo Navas E, | | | 2009 | Encounter | MED [facility] INTRA OP | [address] [facility] | | | | | [address] | [place] | | | | | [place] | [address] | | | | | [address] | | | | | | [phone] | | | +--------+ + + + [...]
--- OUTSIDE RECORDS SUMMARY | ~2019-04-16 | XMS | Encounter Summary ---
Demographics + + + | Address | [address] | | | [address] | | | [place] [address] | + + + | Home Phone | | + + + | Preferred Language | Unknown | + + + | Marital Status | | + + + | Adventism Affiliation | 1013 | + + + | Race | Unknown | + + + | Ethnic Group | Unknown | + + + Author + + + | Author | [facility] | | | and [place] | + + + | Organization | [facility] | | | and [...] Team Providers + +------+ + | Care Leather Crafter Name | Role | Phone | + [...] [address] | | | | | [place] | [place] | | | | | [address] | [address] | | | | | [phone] | [phone] | | | | | | | [...]
--- OUTSIDE RECORDS SUMMARY | ~2019-04-16 | XMS | Encounter Summary ---
Demographics + + + | Address | [address] | | | [address] | | | [place] [address] | + + + | Home Phone [...] | Author | [facility] | | | and [place] | + + + | Organization | [facility] | | | and [...] Team Providers + +------+ + | Care Tube Coater Name | Role | Phone | + [...] | | colonic | | [address], | | | | | polyp Long | | [address] | | | | | term | | [place], | | | | | (current) | | [place] [address] | | | | | use of | | Phone: | | | | | anticoagulan | | [phone] | | | | | ts Coronary | | Fax: | | | | | artery | | [phone] | | | | | disease, | [...] | | | | | | | [place] or | | | | | | | transplanted | | | | | | | heart | | | | | | | Procedures | | | | | | | [place] | | | | | | | COLONOSCOPY | | | | | | | FLX DX | | | | | | | W/COLLJ SPEC | | | | | | | WHEN PFRMD | | | | | | | [place] | | | | | | | COLONOSCOPY | | | | | | | W/BIOPSY | | | | | | | SINGLE/MULTI | | | | | | | PLE [place] | | | | | | | COLSC FLX | | | | | | | W/RMVL OF | | | | | | | TUMOR POLYP | | | | | | | LESION SNARE | | | | | | | TQ [place] | | | | | | | [...] + + | 03/28/ | Hospital | [facility] | Matias Croft MD | Hx of colonic polyp; | | 2019 | Encounter | MED CTR MP INTRA OP | [address], [address] | [facility] (current) | | | | [address] | [address] [address] | use of | | | | [place] | [address] | anticoagulants; | | | | [address] | | Coronary artery | | | | [phone] | | disease, angina | | | | | | presence | | | | | | unspecified, | | | | | | unspecified vessel | | | | | | or lesion type, | | | | | | unspecified whether | | | | | | [place] or | | | | | | [...] You can't be awakened Date Last Reviewed: 02/08/201619998839-3728 [employer]. [address] [place] [address], [place] [address]. All righ ts reserved. This information is [...] for a few hours. Date Last Reviewed: 02/22/201619998152-8579 [employer]. [address] [place] [address], [place] [address]. All righ ts reserved. This information is [...] | | | 11:30 AM | polyp [facility] | | | | | PST | [...] whether | | | | | | [place] or | | | | | | transplanted heart | | + +--------+ + + + | [place] COLONOSCOPY FLX | Routin | 03/28/2019 | [...] | + + + | Babs | [facility] | | [facility]Patient Name: Julio Robertson | KEELY | | D.Procedure Date: 03/28/2019 11:24 AMMRN: [id number] Number: | | | [id number] of : 1955Note Status: FinalizedAttending MD: | [...] physician, the nurse, the anesthesiologist and the microbiology quality control technician | | | in the endoscopy [...] On: 03/28/2019 11:24 AMNumber of Addenda: 0 [facility] | | | [facility] | | | - Continue present [...] |Number of Addenda: 0 | | | [facility] | | + + + + [...] of colonic polyps | + + | terminal operator (current) use of anticoagulants Long-term (current) use of anticoagulants | + + | Coronary artery disease, angina presence unspecified, unspecified vessel or lesion | | type, unspecified whether [place] or transplanted heart | + + documented in this encounter Admitting Diagnoses + + | Diagnosis | + + | Hx of colonic polyp Personal history of colonic polyps | + + | terminal operator (current) use of anticoagulants Long-term (current) use of anticoagulants | + + | Coronary artery disease, angina presence unspecified, unspecified vessel or lesion | | type, unspecified whether [place] or transplanted heart | + + documented [...]
--- OUTSIDE RECORDS SUMMARY | ~2019-04-16 | XMS | Encounter Summary ---
Demographics + + + | Address | [address] | | | [address] | | | [place] [address] | + + + | Home Phone | | + + + | Preferred Language | Unknown | + + + | Marital Status | | + + + | Gnosticist Affiliation | 1013 | + + + | Race | Unknown | + + + | Ethnic Group | Unknown | + + + Author + + + | Author | [facility] | | | and [place] | + + + | Organization | [facility] | | | [...] Team Providers + +------+ + | Care Executive Consultant Name | Role | Phone | + +------+ + PCP | Unavailable | + +------+ + Encounter Details +--------+ + + + + | Date | Type | Department | Care Team | Description | +--------+ + + + + | 10/30/ | Hospital | [facility] | Wing Brandy Lea MD | OTHER PULMONARY | | 2009 - | Encounter | [facility] | [address] | EMBOLISM AND | | | | INPATIENT | [place], [place] | INFARCTION (HCC) | | 11/05/ | | REHABILITATION [address] | [address] | | | 2009 | | [address] | [phone] | | | | | [place], [place] | | | | | | [address] | | | | | | [phone] | | | +--------+ + + + [...]
--- OUTSIDE RECORDS SUMMARY | ~2019-04-16 | XMS | Encounter Summary ---
Demographics + + + | Address | [address] | | | [address] | | | [place] [address] | + + + | Home Phone | | + + + | Preferred Language | Unknown | + + + | Marital Status | | + + + | Sikh Affiliation | 1013 | + + + | Race | Unknown | + + + | Ethnic Group | Unknown | + + + Author + + + | Author | [facility] | | | and [place] | + + + | Organization | [facility] | | | and [...] Team Providers + +------+ + | Care Recreation Clerk Name | Role | Phone | + +------+ + PCP | Unavailable | + +------+ + Encounter Details +--------+ + + + + | Date | Type | Department | Care Team | Description | +--------+ + + + + | 04/07/ | Hospital | [facility] | Maida Albright | | | 2006 | Encounter | MED CTR EMERGENCY | Дмитрий Andrade MD [address] | | | | | [address] | [facility] | | | | | [address] [address] | [place] [address] | | | | | [address] | [phone] | | | | | [phone] | | | +--------+ + + + [...]
--- OUTSIDE RECORDS SUMMARY | ~2019-04-16 | XMS | Encounter Summary ---
Demographics + + + | Address | [address] | | | [address] | | | [place] [address] | + + + | Home Phone | | + + + | Preferred Language | Unknown | + + + | Marital Status | | + + + | Confucianist Affiliation | 1013 | + + + | Race | Unknown | + + + | Ethnic Group | Unknown | + + + Author + + + | Author | [facility] | | | and [place] | + + + | Organization | [facility] | | | [...] Team Providers + +------+ + | Care Remediation Bioanalytics Consultant Name | Role | Phone | + +------+ + PCP | Unavailable | + +------+ + Encounter Details +--------+ + + + + | Date | Type | Department | Care Team | Description | +--------+ + + + + | 06/19/ | Hospital | [facility] | Ayo Navas, | | | 2007 | Encounter | MED CTR XRAY [address] | [address] [place] [address] | | | | | [place] | [place] | | | | | [place] [address] | [address] | | | | | [phone] | | | +--------+ + + + [...]
--- OUTSIDE RECORDS SUMMARY | ~2019-04-16 | XMS | Encounter Summary ---
Demographics + + + | Address | [address] | | | [address] | | | [place] [address] | + + + | Home Phone | | + + + | Preferred Language | Unknown | + + + | Marital Status | | + + + | Restorationist Affiliation | 1013 | + + + | Race | Unknown | + + + | Ethnic Group | Unknown | + + + Author + + + | Author | [facility] | | | and [place] | + + + | Organization | [facility] | | | [...] Team Providers + +------+ + | Care Tip Finisher Name | Role | Phone | + +------+ + PCP | Unavailable | + +------+ + Encounter Details +--------+ + + + + | Date | Type | Department | Care Team | Description | +--------+ + + + + | 10/30/ | Hospital | [facility] | Wing Brandy Lea MD | OTHER PULMONARY | | 2009 - | Encounter | [facility] | [address] | EMBOLISM AND | | | | INPATIENT | [place], [place] | INFARCTION (HCC) | | 11/05/ | | REHABILITATION [address] | [address] | | | 2009 | | [address] | [phone] | | | | | [place], [place] | | | | | | [address] | | | | | | [phone] | | | +--------+ + + + [...]
--- OUTSIDE RECORDS SUMMARY | ~2019-04-16 | XMS | Clinical Summary ---
Demographics + + + | Address | [address] | | | [address] | | | [place] [address] | + + + | Home Phone | | + + + | Preferred Language | Unknown | + + + | Marital Status | | + + + | Religion Affiliation | 1013 | + + + | Race | Unknown | + + + | Ethnic Group | Unknown | + + + Author + + + | Author | [facility] | | | and [place] | + + + | Organization | [facility] | | [...] Team Providers + +------+ + | Care Hazardous Waste Management Specialist Name | Role | Phone | + [...] automatically from request for surgery | | [id number] | + + + + + | terminal press operator (current) use of anticoagulants | 03/17/2019 | + + + + + | Overview: Added automatically from request for surgery | | [id number] | + + + + + | Coronary artery disease, angina presence unspecified, unspecified | 03/17/2019 | | vessel or lesion type, unspecified whether [place] or | | | transplanted heart | | + + + + + | Overview: Added automatically from request for surgery | | [id number] | + + + +---+ | KNEE [...] | 2018 | Encounter | | | correction (current) | | | | | | [...] whether | | | | | | [place] or | | | | | | [...] whether | | | | | | [place] or | | | | | | [...] | | | 11:30 AM | polyp correction | | | | | PST | [...] whether | | | | | | [place] or | | | | | | transplanted heart | | + +--------+ + + + | [place] COLONOSCOPY FLX | Routin | 03/28/2019 | [...] + + + | [facility] | [facility] | | [facility]roenterologyPatient Name: Julio Robertson | KEELY | | D.Procedure Date: 03/28/2019 11:24 AMMRN: [id number] Number: | | | [id number] of : 1955Note Status: FinalizedAttending MD: | [...] physician, the nurse, the anesthesiologist and the aviation survival technician | | | in the endoscopy [...] On: 03/28/2019 11:24 AMNumber of Addenda: 0 [facility] | | | [facility] | | | - Continue present [...] |Number of Addenda: 0 | | | [facility] | | + + + + +---------+ [...] +--------+-------+---------+--------+ | [employer] [place] | [phone] | | | | Indemn | | [...] al/Fam | | 1956 | [phone] | [address] [place] [address] | | | neal | | | 5 (Home) | [place] [address] | + +--------+ +--------+ + + Advance Directives + + + + + | Type | Date Recorded | Patient | Explanation | | | | Plastic Joint Maker | | + + + + + | Power of | | | | | Skid Strapper | | | | + + + + + | Advance | 03/28/2019 9:11 | | | | Directive | AM | | | + + + + +
--- OUTSIDE RECORDS SUMMARY | ~2019-04-16 | XMS | Encounter Summary ---
Demographics + + + | Address | [address] | | | [address] | | | [place] [address] | + + + | Home Phone | | + + + | Preferred Language | Unknown | + + + | Marital Status | | + + + | Mormon Affiliation | 1013 | + + + | Race | Unknown | + + + | Ethnic Group | Unknown | + + + Author + + + | Author | [facility] | | | and [place] | + + + | Organization | [facility] | | | and [...] Team Providers + +------+ + | Care Assembler Gold Frame Name | Role | Phone | + [...] | | colonic | | [address], | | | | | polyp Long | | [address] | | | | | term | | [place], | | | | | (current) | | [place] [address] | | | | | use of | | Phone: | | | | | anticoagulan | | [phone] | | | | | ts Coronary | | Fax: | | | | | artery | | [phone] | | | | | disease, | [...] | | | | | | | [place] or | | | | | | [...] + + | 03/28/ | Surgery | [facility] | Matias Croft MD | COLONOSCOPY | | 2019 | | MED CTR MP INTRA OP | [address], [address] | | | | | [address] | [address] [place], [place] | | | | | [place], [place] | [address] | | | | | [address] | | | | | | [phone] | | | +--------+---------+ + + + [...] You can't be awakened Date Last Reviewed: 02/08/201619998404-1084 [employer]. [address] [place] [address], [place] [address]. All righ ts reserved. This information is [...] for a few hours. Date Last Reviewed: 02/22/201619991881-2130 [employer] [place] [address]. All righ ts reserved. This information is [...] | | | 11:30 AM | polyp [facility] | | | | | PST | [...] whether | | | | | | [place] or | | | | | | transplanted heart | | + +--------+ + + + | [place] COLONOSCOPY FLX | Routin | 03/28/2019 | [...] + + + | [facility] | [facility] | | [facility]Patient Name: Julio Robertson | KEELY | | D.Procedure Date: 03/28/2019 11:24 AMMRN: [id number] Number: | | | [id number] of : 1955Note Status: FinalizedAttending MD: | [...] physician, the nurse, the anesthesiologist and the satellite tv technician | | | in the endoscopy [...] On: 03/28/2019 11:24 AMNumber of Addenda: 0 [facility] | [facility] | | | - Continue present [...] |Number of Addenda: 0 | | | [facility] | | + + + + +---------+ [...] of colonic polyps | + + | [facility] (current) use of anticoagulants Long-term (current) use of anticoagulants | + + | Coronary artery disease, angina presence unspecified, unspecified vessel or lesion | | type, unspecified whether [place] or transplanted heart | + + documented in this encounter Admitting Diagnoses + + | Diagnosis | + + | Hx of colonic polyp Personal history of colonic polyps | + + | [facility] (current) use of anticoagulants Long-term (current) use of anticoagulants | + + | Coronary artery disease, angina presence unspecified, unspecified vessel or lesion | | type, unspecified whether [place] or transplanted heart | + + documented [...]
--- OUTSIDE RECORDS SUMMARY | ~2019-04-16 | XMS | Encounter Summary ---
Demographics + + + | Address | [address] | | | [address] | | | [place] [address] | + + + | Home Phone | | + + + | Preferred Language | Unknown | + + + | Marital Status | | + + + | Baptism Affiliation | 1013 | + + + | Race | Unknown | + + + | Ethnic Group | Unknown | + + + Author + + + | Author | [facility] | | | and [place] | + + + | Organization | [facility] | | | and [...] Team Providers + +------+ + | Care Floorperson Name | Role | Phone | + [...] Provider Unknown | | | | | [phone] | [phone] | | | | | | (Fax) [...] + +--------+ + + + | XR CHEST 1 VIEW | Routin | 10/21/2009 | | Results for this | | | e | 6:29 AM | | procedure are in the | | | | PDT | | results section. | + +--------+ + + + documented in this encounter Results XR Chest 1 Vw (10/21/2009 6:29 AM PDT) + + | Specimen | [...]
--- OUTSIDE RECORDS SUMMARY | ~2019-04-16 | XMS | Encounter Summary ---
Demographics + + + | Address | [address] | | | [address] | | | [place] [address] | + + + | Home Phone | | + + + | Preferred Language | Unknown | + + + | Marital Status | | + + + | Taoist Affiliation | 1013 | + + + | Race | Unknown | + + + | Ethnic Group | Unknown | + + + Author + + + | Author | [facility] | | | and [place] | + + + | Organization | [facility] | | | [...] Team Providers + +------+ + | Care Weekend Anchor Name | Role | Phone | + [...] Provider Unknown | | | | | [phone] | [phone] | | | | | | (Fax) [...]
--- OUTSIDE RECORDS SUMMARY | ~2019-04-16 | XMS | Encounter Summary ---
Demographics + + + | Address | [address] | | | [address] | | | [place] [address] | + + + | Home Phone [...] Team Providers + +------+ + | Care Customer Project Manager Name | Role | Phone | + +------+ + PCP | Unavailable | + +------+ + Encounter Details +--------+ + + + + | Date | Type | Department | Care Team | Description | +--------+ + + + + | 08/11/ | Hospital | [facility] | | | | 2008 | Encounter | MED CTR XRAY [address] | | | | | | [address] | | | | | | [place] [address] | | | | | | [phone] | | | +--------+ + + + [...]
--- OUTSIDE RECORDS SUMMARY | ~2019-04-16 | XMS | Encounter Summary ---
Demographics + + + | Address | [address] | | | [address] | | | [place] [address] | + + + | Home Phone [...] + + | Author | [facility] | | | and [place] | + + + | Organization | [facility] | | | [...] Team Providers + +------+ + | Care Iron Launder Operator Name | Role | Phone | + +------+ + PCP | Unavailable | + +------+ + Encounter Details +--------+ + + + + | Date | Type | Department | Care Team | Description | +--------+ + + + + | 04/07/ | Hospital | [facility] | Maida Albright | | | 2006 | Encounter | MED CTR EMERGENCY | Дмитрий Andrade MD [address] | | | | | [address] | [facility] | | | | | [place] | [place] [address] | | | | | [address] | [phone] | | | | | [phone] | | | +--------+ + + + [...]
--- OUTSIDE RECORDS SUMMARY | ~2019-04-16 | XMS | Encounter Summary ---
Demographics + + + | Address | [address] | | | [address] | | | [place] [address] | + + + | Home Phone | | + + + | Preferred Language | Unknown | + + + | Marital Status | | + + + | Bahai Affiliation | 1013 | + + + | Race | Unknown | + + + | Ethnic Group | Unknown | + + + Author + + + | Author | [facility] | | | and [place] | + + + | Organization | [facility] | | | [...] Team Providers + +------+ + | Care Copy Editor Name | Role | Phone | + +------+ + PCP | Unavailable | + +------+ + Encounter Details +--------+ + + + + | Date | Type | Department | Care Team | Description | +--------+ + + + + | 08/11/ | Hospital | [facility] | Price Gallagher, | | | 2008 - | Encounter | MED CTR ICU [address] | [address] | | | | | [place], | [place], | | | 08/12/ | | [place] [address] | [place] [address] | | | 2008 | | [phone] | [phone] | | | | | | | [...]
--- OUTSIDE RECORDS SUMMARY | ~2019-04-16 | XMS | Encounter Summary ---
Demographics + + + | Address | [address] | | | [address] | | | [place] [address] | + + + | Home Phone | | + + + | Preferred Language | Unknown | + + + | Marital Status | | + + + | Temple Affiliation | 1013 | + + + | Race | Unknown | + + + | Ethnic Group | Unknown | + + + Author + + + | Author | [facility] | | | and [place] | + + + | Organization | [facility] | | [...] Providers + +------+ + | Care Public Area Supervisor Name | Role | Phone | [...] | SR | | | | | [phone] | | | +--------+ + + + [...]
--- OUTSIDE RECORDS SUMMARY | ~2019-04-16 | XMS | Encounter Summary ---
Demographics + + + | Address | [address] | | | [address] | | | [place] [address] | + + + | Home Phone | | + + + | Preferred Language | Unknown | + + + | Marital Status | | + + + | Holiness Affiliation | 1013 | + + + | Race | Unknown | + + + | Ethnic Group | Unknown | + + + Author + + + | Author | [facility] | | | and [place] | + + + | Organization | [facility] | | | [...] Team Providers + +------+ + | Care Neuroradiologist Name | Role | Phone | + [...] Closed | | Gastroenterol | Diagnoses | [place], | [facility] | | | | ogy | Encounter | Bennie | Gastroenterol | | | | | for | MD Ihsan | ogy [address] | | | | | screening | [address] | | | | | for | [place] | [address] [place] | | | | | malignant | [address] [place] | [place] | | | | | neoplasm of | [place] | [address] | | | | | colon | [address] | Phone: | | | | | Procedures | Phone: | [phone] | | | | | CUPOLA REPAIRER | [phone] | Fax: | | | | | COLONOSCOPY | Fax: | [phone] | | | | | | [phone] | | +--------+--------+ + + + + Encounter Details +--------+---------+ + + + | Date | Type | Department | Care Team | Description | +--------+---------+ + + + | 01/29/ | Office | [facility] | Matias Croft MD | Hx of colonic polyp | | 2019 | Visit | GASTROENTEROLOGY | [address], [address] | (Primary Dx); Long | | | | [address] | [address] [place] | term (current) use | | | | [address] [place], [place] | [address] | of anticoagulants; | | | | [address] | | Coronary artery | | | | [phone] | | disease, angina | | | | | | presence | | | | | | unspecified, | | | | | | unspecified vessel | | | | | | or lesion type, | | | | | | unspecified whether | | | | | | [place] or | | | | | | [...] of colonic polyps | + + | laborer marine terminal (current) use of anticoagulants Long-term (current) use of anticoagulants | + + | Coronary artery disease, angina presence unspecified, unspecified vessel or lesion | | type, unspecified whether [place] or transplanted heart | + + documented in this encounter
[2019-04-16] MEDS ORDERED: ELIQUIS5 MG PO (15:57)
[2019-04-16] MEDS ORDERED: ATORVASTATIN CA20 MG PO (15:57)
[2019-04-16] MEDS ORDERED: ULTRAM50 MG PO (15:58)
[2019-04-16] MEDS ORDERED: METOPROLOL SUCC25 MG PO (15:58)
[2019-04-16] MEDS ORDERED: MONTELUKAST SOD10 MG PO (15:58)
[2019-04-16] MEDS ORDERED: VENTOLIN HFA18 GM INH (15:59)
[2019-04-16] MEDS ORDERED: FLOVENT DISKUS50 MCG INH (15:59)
[2019-04-16] MEDS ORDERED: ZITHROMAX250 MG PO (16:38)
[2019-04-16] MEDS ORDERED: PREDNISONE20 MG PO (16:38)
[2019-04-16] MEDS ORDERED: ALBUTEROL2.5 MG/3 M INH (16:38)
--- NOTE | 2019-04-17 06:44 | EKG ---
[facility] [address] [facility] [place] [address] Signed Normal sinus rhythm Nonspecific T wave abnormality Prolonged QT Abnormal ECG No previous ECGs available Confirmed by MARS RIVERA MD ([id number]) on 04/17/2019 6:44:33 AM Electronically Signed By: MARS RIVERA MD 04/17/19 0644 PATIENT NAME: LISA MOSS Electrocardiogram DATE OF : 53 PHYSICIAN: MARS RIVERA MD REPORT #: [id number] REPORT IS CONFIDENTIAL AND NOT TO BE RELEASED WITHOUT AUTHORIZATION
== END 2019-04-16 16:55 | disposition home or self-care (01) ==
LOC: ED 15:44
DX: J44.1 Chronic obstructive pulmonary disease with (acute) exacerbation (principal); I10 Essential (primary) hypertension; I48.91 Unspecified atrial fibrillation; Z86.711 Personal history of pulmonary embolism; Z79.899 Other long term (current) drug therapy; Z79.01 Long term (current) use of anticoagulants; Z79.51 Long term (current) use of inhaled steroids
CPT/HCPCS: 71046; 80053; 83735; 84484; 85025; 93005; 93010; 94640; 96374; 99284-25; J2930

== ENCOUNTER 2024-06-28 19:58 | Emergency (ER) | payer OTHER, MEDICARE, BC ==
[~2024-06-28] VITALS: Ht 175.3 cm; Wt 80.0 kg
[~2024-06-28 19:58] MED LIST: ALBUTEROL2.5 MG/3 M INH; ATORVASTATIN CA20 MG PO; ELIQUIS5 MG PO; FLOVENT DISKUS50 MCG INH; METOPROLOL SUCC25 MG PO; MONTELUKAST SOD10 MG PO; PREDNISONE20 MG PO; ULTRAM50 MG PO; VENTOLIN HFA18 GM INH; ZITHROMAX250 MG PO
[2024-06-28] MEDS ORDERED: LASIX20 MG PO (20:13)
[2024-06-28] MEDS ORDERED: JARDIANCE10 MG PO (20:14)
[2024-06-28 20:15] LABS: BASOPHILS 0.9 % (0-2); EOSINOPHILS 2.9 % (0-6); HEMOGLOBIN 13.7 g/dL (12.0-18.0); LYMPHOCYTES 17.9 % (24-44); MCH 29.8 (27-36); MCHC 33.3 g/dl (30-36); MCV 89.4 fl (81-99); MONOCYTES 9.4 % (0-12); NEUTROPHILS 68.9 % (39-80); PLATELET COUNT 251 K/uL (140-440); RBC 4.59 M/ul (4.3-5.7); RDW 15.4 (10.5-15.0)
[2024-06-28] MEDS ORDERED: PLAVIX75 MG PO (20:15)
[2024-06-28] MEDS ORDERED: ASPIRIN 81 MG CHEW PO ONE (20:15)
[2024-06-28] MEDS ORDERED: NITROGLYCERIN 0.4 MG SUBL SL PRN (20:30)
[2024-06-28 20:32] LABS: ALBUMIN 4.1 g/dL (3.4-5.0); ALBUMIN/GLOBULIN RATIO 0.93 (1.1-2.4); ANION GAP 10.8 (7-21); BILIRUBIN, TOTAL 0.4 mg/dL (0.2-1.0); BUN/CREATININE RATIO 26.08 (6.0-28.6); CALCIUM 9.3 mg/dL (8.5-10.1); CREATININE, SERUM 0.92 mg/dL (0.70-1.30); MAGNESIUM 2.2 mg/dL (1.8-2.4); POTASSIUM 3.8 mmol/L (3.5-5.1); PROTEIN, TOTAL 8.5 g/dL (6.4-8.2)
[2024-06-28] MEDS ORDERED: FAMOTIDINE 20 MG/ 2 ML VIAL IV ONE (21:00)
[2024-06-28] MEDS ORDERED: KETOROLAC TROMETHAMINE 30 MG/ML VIAL IV ONE (21:00)
[2024-06-28] MEDS ORDERED: HYDROCODONE BIT/ACETAMINOPHEN 5/325 MG 1 TAB HOME.PACK PO ONE (23:00)
[2024-06-28] MEDS ORDERED: metroNIDAZOLE 250 MG TAB PO ONE (23:00)
[2024-06-28] MEDS ORDERED: levoFLOXacin 500 MG TAB PO ONE (23:00)
[2024-06-28] MEDS ORDERED: METRONIDAZOLE500 MG PO (23:02)
[2024-06-28] MEDS ORDERED: HYDROCODON-ACE1 EA10 PO (23:02)
[2024-06-28] MEDS ORDERED: LEVOFLOXACIN500 MG PO (23:02)
[2024-06-28 23:15] VITALS: BP 127/67
--- NOTE | 2024-06-29 22:18 | EKG ---
[facility] [address] [facility] [place] [address] Signed Wide QRS rhythm Right bundle branch block Abnormal ECG When compared with ECG of 16-APR-2019 15:51, Wide QRS rhythm has replaced Sinus rhythm Confirmed by Eri Wellington MD () on 06/29/2024 10:17:58 PM Electronically Signed By: ERI WELLINGTON MD 06/29/24 2218 PATIENT NAME: ISALISA BRANTLEY Electrocardiogram DATE OF : 53 PHYSICIAN: ERI WELLINGTON MD REPORT #: [id number] REPORT IS CONFIDENTIAL AND NOT TO BE RELEASED WITHOUT AUTHORIZATION
== END 2024-06-28 23:15 | disposition home or self-care (01) ==
LOC: ED 19:58
PROVIDERS: Internal Medicine
DX: K80.20 Calculus of gallbladder without cholecystitis without obstruction (principal); I10 Essential (primary) hypertension; I48.91 Unspecified atrial fibrillation; J44.9 Chronic obstructive pulmonary disease, unspecified; Z79.02 Long term (current) use of antithrombotics/antiplatelets; Z79.51 Long term (current) use of inhaled steroids; Z79.899 Other long term (current) drug therapy
CPT/HCPCS: 36415; 71045; 76705; 80053; 83690; 83735; 84484; 85025; 85379; 93005; 93010; 96374; 96375; 99285-25; A9270; J1885